=== PATIENT | female | born 1970 | race Caucasian/White ===

== ENCOUNTER 2016-05-27 10:22 | Emergency (ER) | payer OTHER ==
[~2016-05-27] VITALS: Ht 157.5 cm; Wt 50.0 kg
[~2016-05-27 10:22] MED LIST: ALBU8.5H2 INHALATION; BACL10TA PO; BECL8.7A6 INHALATION; ERGO500050 PO; FENT1PAT7 TOP; FLUT15.88 NS; HYDR2TAB27 PO; MENT71OI TOPICAL; MUPI22OI2 TOPICAL; OMEP20CA11 PO; ONDA4TAB12 PO; OXYB10TA PO; OXYC-466 PO; PREG150C PO; QUET50TA PO; VENL75TA3 PO; ZOLP5TAB6 PO
[2016-05-27 10:25] VITALS: BP 165/91; PULSE 78; RESP 24; O2SAT 100
[2016-05-27] MEDS ORDERED: 0.9% Sodium Chloride 1,000 ML IV ONE ×2 (10:48→12:55)
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
[2016-05-27] MEDS ORDERED: Ondansetron 2 mg/mL 2 mL Inj IVPUSH PRN (10:50)
[2016-05-27] MEDS: HYDROmorphone 1 mg/mL Inj IVPUSH PRN ×3 (11:09→14:50)
[2016-05-27 11:18] LABS: BASOPHILS % (AUTO) 0.4 % (0-3); EOSINOPHILS % (AUTO) 1.3 % (0-5); MONOCYTES % (AUTO) 5.2 % (4-12); Mean Corpuscular Hemoglobin 29.1 pg (27.0-35.0); Mean Corpuscular Volume 88.3 fL (81-100); NEUTROPHILS % (AUTO) 78.6 % (40-74); Platelet Count 384 bil/L (150-400)
[2016-05-27 11:40] LABS: Magnesium 1.9 mg/dL (1.6-2.6)
[2016-05-27] MEDS ORDERED: HYDROmorphone 1 mg/mL Inj IVPUSH ONE (12:55)
[2016-05-27 14:37] LABS: APPEARANCE,URINE HAZY (CLEAR,HAZY); COLOR,URINE YELLOW (YELLOW); OCCULT BLOOD,URINE NEGATIVE (NEGATIVE); UROBILINOGEN,URINE NORMAL (NORMAL)
[2016-05-27] MEDS ORDERED: Haloperidol 5 mg/mL Inj IVPUSH ONE (14:50)
[2016-05-27 14:51] VITALS: BP 144/81; PULSE 74; RESP 20; O2SAT 98
[2016-05-27] MEDS ORDERED: ONDA4TAB9 PO (15:43)
[2016-05-27 16:09] VITALS: BP 140/72; PULSE 88; O2SAT 97
[2016-05-27 16:13] VITALS: BP 140/72; PULSE 88; O2SAT 97
== END 2016-05-27 16:19 | disposition home or self-care (01) ==
LOC: SED 10:22
DX: G43.A0 Cyclical vomiting, in migraine, not intractable (principal); K31.84 Gastroparesis; R50.9 Fever, unspecified; I10 Essential (primary) hypertension; J45.909 Unspecified asthma, uncomplicated; E78.5 Hyperlipidemia, unspecified; Z87.891 Personal history of nicotine dependence; Z88.1 Allergy status to other antibiotic agents; Z88.5 Allergy status to narcotic agent; Z88.8 Allergy status to other drugs, medicaments and biological substances
CPT/HCPCS: 36415; 80053; 81000; 83690; 83735; 85025; 96361; 96374; 96375; 96376; 99285; J1170; J1200; J1630; J2405; J7030

== ENCOUNTER 2016-05-28 13:40 | Inpatient (IN) | payer OTHER, MEDICAID ==
[~2016-05-28] VITALS: Ht 157.5 cm; Wt 52.3 kg
[~2016-05-28 13:40] MED LIST changes: +ONDA4TAB9 PO
[2016-05-28 13:47] VITALS: BP 159/100; PULSE 86; RESP 16; O2SAT 100
[2016-05-28] MEDS ORDERED: 0.9% Sodium Chloride 1,000 ML IV ONE ×2 (14:40→15:33)
[2016-05-28] MEDS ORDERED: Ondansetron 2 mg/mL 2 mL Inj IVPUSH ONE (14:40)
[2016-05-28] MEDS ORDERED: HYDROmorphone 1 mg/mL Inj IVPUSH ONE (14:40)
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
[2016-05-28] MEDS ORDERED: MetoCLOpramide 5 mg/mL 2 mL Inj IVPUSH ONE (15:35)
--- NOTE | 2016-05-28 16:01 | DRSVH ---
PROCEDURE: X-RAY ACUTE ABDOMINAL SERIES ([id number]) INDICATIONS: r/o obstruction, vomiting TECHNIQUE: One view chest and two views of the abdomen were acquired. COMPARISON: [facility], , ABD ACUTE SERIES, 04/21/2012, 4:13. FINDINGS: Surgical changes and devices: L5-S1 interbody spacers noted. Status post L5 laminectomy . Cholecystec melony clips. Chest: Lungs are clear. Heart size is normal. No pleural effusions. No pneumoperitoneum. Abdomen: Bowel gas pattern is nonspecific. Gaseous distention of a loop of bowel is noted in the rig ht quadrant. Air fluid level with a differential height noted in the right quadrant. No suspicious ca lcifications. Visualized solid organ contours appear normal. Bones: No suspicious bony lesions. IMPRESSION: Nonspecific bowel gas pattern. Recommend repeat plain film radiographs or CT scan of the abdomen and pelvis with contrast if patient's symptoms persist or worsen. Dictated by: Leeanne Vazquez MD, PhD on 05/28/2016 at 16:00 Approved by: Leeanne Vazquez MD, PhD on 05/28/2016 at 16:00
[2016-05-28 17:22] VITALS: BP 155/89; PULSE 94; RESP 12; O2SAT 99
[2016-05-28] MEDS ORDERED: Promethazine Inj 25 MG in Dextrose 5%-Pha MIX 50 ML IV ONE (18:05)
--- NOTE | 2016-05-28 19:19 | DRSVH ---
PROCEDURE: CT ABDOMEN AND PELVIS WITH CONTRAST ([id number]) INDICATIONS: vomiting, possible obstruction per kub TECHNIQUE: After the administration of intravenous contrast, 5 mm thick sections acquired from the diaphragm to the symphysis. 5 mm coronal and sagittal reformats were acquired. For radiation dose reduction, the following was used: automated exposure control, adjustment of mA and/or kV according to patient siz e. COMPARISON: [facility], CT, CT ABD PELVIS W CON, 01/18/2016, 0:05. [facility], CR, XR ABD ACUTE SERIES 3VW, 05/28/2016, 16:10. FINDINGS: Image quality: Excellent. ABDOMEN: Lung bases: There is minimal dependent atelectasis. Heart size is normal. There is a moderate-sized hiatal hernia. Solid organs: Liver and spleen are normal in size and enhancement. Gallbladder is surgically absent . Biliary system is non dilated. Pancreas enhances normally. No adrenal nodules. Kidneys demonstr ate normal size and enhancement, without hydronephrosis. Peritoneum and bowel: There is mild segmental wall thickening involving a few loops of small bowel p rimarily in the left upper quadrant as well as the colon extending from the hepatic flexure to the si gmoid colon. There is slight fluid distention of distal small bowel loops without abnormal dilatatio n or transition point to suggest junction. No free fluid or air. Nodes and vessels: No retroperitoneal or mesenteric adenopathy by size criteria. Aorta and inferior vena cava are normal in size. Miscellaneous: No ventral hernias. PELVIS: Genitourinary: Bladder wall thickness is normal. The uterus is surgically absent. Miscellaneous: No inguinal hernias or adenopathy. Bones: No suspicious bony lesions. No vertebral body compression fractures. There are postsurgical changes status post fusion at L5-S1. IMPRESSION: 1. Multiple segments of bowel wall thickening involving the small and large bowel as described consi stent with a nonspecific enterocolitis, likely infectious or inflammatory. Mild associated fluid dis tention of a few loops of small bowel is compatible with an ileus without definite evidence of obstru ction. 2. Moderate size hiatal hernia. Dictated by: Ricci Andrade M.D. on 05/28/2016 at 19:18 Approved by: Ricci Andrade M.D. on 05/28/2016 at 19:18
[2016-05-28] MEDS ORDERED: Polyethylene Glycol (PEG) 17 Gm Powder PO PRN (19:50)
[2016-05-28] MEDS ORDERED: Alum-Mag Hydrox-Simeth 30 mL Suspension PO PRN ×2 (19:50)
[2016-05-28] MEDS ORDERED: Ondansetron 2 mg/mL 2 mL Inj IVPUSH PRN ×2 (19:50)
[2016-05-28 20:12] VITALS: BP 166/96; PULSE 92; RESP 18; O2SAT 100
[2016-05-28 21:02] VITALS: BP 171/95; PULSE 87; RESP 24; O2SAT 100
[2016-05-28] MEDS: 0.9% Sodium Chloride 1,000 ML IV SCH (21:22)
--- NOTE | 2016-05-28 22:06 | DRSVH ---
PROCEDURE: X-RAY CHEST ONE VIEW, PORTABLE ([id number]) INDICATIONS: Left upper Arm PICC line placement verification TECHNIQUE: One view of the chest was acquired. COMPARISON: [facility], MR, MR BRAIN W&WO CON, 05/06/2016, 12:37. [facility], CT, CT BRAIN WO CON, 01/12/2015, 13:00. [facility], CR, XR ABD ACUTE SERIES 3VW, 2016, 16:10. FINDINGS: Surgical changes and devices: There is a left upper extremity PICC line with the tip approximately 1 cm distal to the cavoatrial junction. Lungs and pleura: No pleural effusions or pneumothorax. Lungs are clear. Mediastinum: Mediastinal contours appear normal. Heart size is normal. Bones and chest wall: No suspicious bony lesions. Overlying soft tissues appear unremarkable. IMPRESSION: 1. PICC line tip approximately 1 cm distal to the cavoatrial junction. 2. No acute cardiopulmonary disease. Dictated by: Ricci Andrade M.D. on 05/28/2016 at 22:04 Approved by: Ricci Andrade M.D. on 05/28/2016 at 22:04
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
--- NOTE | 2016-05-28 23:00 | NUR ---
Admit note/med red Pt is admitted to room 3017 from ED around 20:40 for Ileus, dehydration, N/V. Pt is A&Ox3. c/o 02/19 abdominal pain; has nausea and retching. Morphine given with good relief. Nausea is not well controlled by Zofran; Reglan given-pt sleeping at this time. Bowel tones are very hypoactive. Pt reported small, formed BM this AM. Pt is oriented to room and plan of care; she verbalized understanding. CXR done to verify Left upper arm 1 lumen picc line. Pt didn't bring her medications or list of medications. Nafcillin added to her med rec (her home IV infusion shows 12Gm/600mL to run for 24hrs). will complete pt's med rec in AM. Addendum: 05/29/16 at 0639 by BRENDA SCHNEIDER RN correction: Pt had small "slimy, duck poop" at home. Addendum: 05/29/16 at 0642 by BRENDA SCHNEIDER RN N/pain/BM Zofran given for nausea, but pt reported it made her nausea and abdominal pain worst. Pt requested not to have any more zofran this admit. Reglan given with good relief. Morphine effective on relieving pt's 9-02/19 abdominal pain. Pt continuous to have small, slimy brown BM. hasn't passed gas. hypoactive bowel tone on RLQ, very hypoactive bowel tones on the rest.
[2016-05-28] MEDS: MetoCLOpramide 5 mg/mL 2 mL Inj IVPUSH PRN (23:06)
[2016-05-29] MEDS ORDERED: NAFC2VIA IV (00:37)
[2016-05-29] MEDS ORDERED: NAFC2FRO IV (00:45)
[2016-05-29 05:07] VITALS: BP 156/92; PULSE 67; RESP 22; O2SAT 100
[2016-05-29] MEDS: MetoCLOpramide 5 mg/mL 2 mL Inj IVPUSH PRN ×3 (05:07→18:07)
[2016-05-29 05:45] LABS: BASOPHILS % (AUTO) 0.2 % (0-3); EOSINOPHILS % (AUTO) 0.2 % (0-5); MONOCYTES % (AUTO) 14.1 % (4-12); Mean Corpuscular Hemoglobin 29.3 pg (27.0-35.0); Mean Corpuscular Volume 86.3 fL (81-100); NEUTROPHILS % (AUTO) 60.7 % (40-74); Platelet Count 349 bil/L (150-400)
[2016-05-29] MEDS: 0.9% Sodium Chloride 1,000 ML IV SCH ×3 (07:00→22:35)
[2016-05-29] MEDS ORDERED: KCl 40 mEq/D5W 500 mL 40 MEQ in IV Premix 1 EACH IV ONE (07:50)
--- NOTE | 2016-05-29 09:26 | NUR ---
Spoke with Erum Shaw and she is VALERIE BOLIVAR, she is aware patient is here and would like to have H&P faxed to her.
[2016-05-29 12:55] VITALS: BP 161/84; PULSE 67; RESP 23; O2SAT 98
[2016-05-29] MEDS ORDERED: [UNRECOGNIZED DRUG - OTHER] IV SCH (12:55)
[2016-05-29] MEDS ORDERED: NAFCILLIN IN DEXTROSE ISO OSM IV SCH (12:55)
[2016-05-29] MEDS ORDERED: Mupirocin 2% 22 Gm Ointment TOPICAL PRN (12:55)
--- NOTE | 2016-05-29 13:38 | NUR ---
Social Work-initial assessment: Data:See initial assessment. Pt is a 45 y/o female who was admitted on 05/28/16 for dehydration per H&P. Pt's insurance is [employer] and PCP is residency clinic. EMR Reviewed. BRYANT met with pt at bedside to discuss discharge planning, SW role explained. Pt is alert and oriented x3. Pt resides at home with her where she remains independent with ADLS. Pt either uses a fww or w.c at baseline and does not drive. Pt is currently open with [facility] and [facility] for IV abx. BRYANT spoke with Agapito from [facility] and Svitlana From [facility], both will need resume orders at discharge. Pt has VALERIE caregivers and her CM is Erum Shaw, clinicals faxed. BRYANT discussed DPOA/ advanced directive, pt states she has completed this, SW encouraged pt to bring a copy into the hospital. Pt has no detention care or VA benefits. Pt states her will provide transport home at discharge. BRYANT provided phone number and plan on white board in room. BRYANT will continue to follow. Assessment:pt who would benefit resume HH and resume IV abx. Plan:Pt to discharge home when medically stable via POV. Pt will need resume HH through [facility] and IV abx through [facility]. BRYANT will continue to follow. BONNIE Perez Addendum: 05/29/16 at 1342 by SWATHI DIXON SS Amended: Links added.
--- NOTE | 2016-05-29 13:54 | PCM.PNMED ---
Subjective Date of Service May 29, 2016 Subjective Patient states her chronic abdominal pain continues to be worse from her usual level of 5/10 to 8,9/10. Patient seen ambulating in [address] with assist. Denies fevers, chills or vomiting. Exam Vital Signs Vital Sign - Last Date Time Temp Pulse Resp B/P Pulse Ox O2 Delivery O2 Flow Rate FiO2 05/29/16 12:55 37.0 67 23 161/84 98 Room Air Intake and Output 05/28/16 05/28/16 05/29/16 Cumulative From/Thru 15:00 23:00 07:00 05/28/16 13:47 - 05/28/16 20:56 Intake Total 1000 ml 1000 ml 2000 ml Balance 1000 ml 1000 ml 2000 ml IV Total 1000 ml 1000 ml 2000 ml Lab and Diagnostics Result Diagram: 05/29/16 0505 05/29/16 0505 X-Rays, CTs and MRIs CT ABDOMEN AND PELVIS WITH CONTRAST 05/28/16 IMPRESSION: 1. Multiple segments of bowel wall thickening involving the small and large bowel as described consistent with a nonspecific enterocolitis, likely infectious or inflammatory. Mild associated fluid distention of a few loops of small bowel is compatible with an ileus without definite evidence of obstruction. 2. Moderate size hiatal hernia. Dictated by: Ricci Andrade M.D. on 05/28/2016 at 19:18 Approved by: Ricci Andrade M.D. on 05/28/2016 at 19:18 X-RAY ACUTE ABDOMINAL SERIES 05/28/16 IMPRESSION: Nonspecific bowel gas pattern. Recommend repeat plain film radiographs or CT scan of the abdomen and pelvis with contrast if patient's symptoms persist or worsen. Dictated by: Leeanne Vazquez MD, PhD on 05/28/2016 at 16:00 Approved by: Leeanne Vazquez MD, PhD on 05/28/2016 at 16:00 Assessment & Plan 45 year old female with a history of Multiple Sclerosis, Gastropareses, Chronic narcotic dependence and previous feeding tube placement presents to [facility] Emergency department with Abdominal pain and vomiting. Day #1. 1. Acute Abdominal pain. Present on admission. Ongoing symptoms Etiology is likely due to Gastroparesis but also imaging suggests nonspecific enterocolitis. Patient does not seem to have infectious clinical course and will hold off starting any antibiotics at this point. It is reasonable she may have a viral gastroenteritis. Some concern raised about narcotic seeking behaviors in previous medical records reviewed - CT findings as follows: Multiple segments of bowel wall thickening involving the small and large bowel as described consistent with a nonspecific enterocolitis, likely infectious or inflammatory. Mild associated fluid distention of a few loops of small bowel is compatible with an ileus without definite evidence of obstruction. - nothing by mouth - continue IV fluids - antiemetics with Reglan IV which will be beneficial for gastroparesis 2. Gastroparesis, chronic Etiology unclear with no history of common risk factors such as diabetes. Could be related to her Multiple sclerosis - history of Botox injection lower esophageal sphincter - recommend evaluation at [facility] concerning benefit of a gastric pacemaker placement 3. Recent hx of staph aureus bacteremia, poa. Stable. - continue daily Nafcillin IV to complete a course of 6 weeks (till early Jun) - patient followed by Dr. Benjamin outpatient 4. Chronic narcotic dependence pain: - Continue hoe dose fentanyl patch, Percocet. - Morphine IV to only be used for breakthrough pain 5. Multiple Sclerosis, Chronic - presumed stable. - outpatient follow up with Neurology 6. Depression/anxiety/PTSD: -Continue venlafaxine, Seroquel - Acetaminophen as needed for mild pain/fever/headache - Bowel regimen as needed - Antiemetic as needed Dispo: Anticipate discharge once patient is tolerating oral intake, most likely in 1-2 days. VTE Mechanical Devices: Intermittant Pneumatic CD, Venous Foot Pump Resuscitation Status: CPR: Attempt Resuscitation Time spent 25 minutes Attending Statement I have seen and evaluated patient at bedside in addition to directly supervising care provided by resident physician. I agree with above documentation. Daphnie Wise DO May 29, 2016 13:47 Alcon Thomas DO May 30, 2016 07:29
--- NOTE | 2016-05-29 14:05 | NUR ---
Case Management: Clarification of patient status: Inpatient per MD order on 05/29/16. Vanna Levy RN
[2016-05-29] MEDS ORDERED: Nafcillin Inj 2,000 MG in Dextrose 5% Minibag Plus 100 ML IV ONE (15:20)
--- NOTE | 2016-05-29 15:43 | NUR ---
Meds/Contact Pt medicated for pain Q4 hrs. Fentanyl patch added and PO pain med, in addiction to IV. Pt being f/u by Dr Benjamin, placed on enteric precautions till stool PCR comes back. Pt able to make needs known, bed in low position, call light in reach. Will continue with frequent monitoring. Addendum: 05/29/16 at 1647 by ISHAAN SAN RN Noon meds and IV Nefcillin given late d/t meds not provided by Rx Meds just administered
--- NOTE | 2016-05-29 16:18 | CONS ---
[address] [address] CONSULTATION REPORT PATIENT: SWATHI BLAIR : 1970 MR#: [id number] ADMIT: 05/28/2016 JOB ID: [id number] DATE OF SERVICE: 05/29/2016 INFECTIOUS DISEASE CONSULTATION: REASON FOR CONSULTATION: Fever, nausea and vomiting in a patient who is undergoing treatment for MSSA bacteremia. I thank Dr. Wise for this timely consult. HISTORY OF PRESENT ILLNESS: The patient is an unfortunate 45-year-old woman well known to me from an admission in April. At that time, the patient had been admitted with high-grade methicillin-sensitive Staphylococcus aureus bacteremia arising from an infected port catheter which had been placed to facilitate intravenous infusions occasionally needed for her esophageal disease. The patient's port was removed during that April admission by Dr. Gallardo and we embarked upon a six week course of nafcillin for the high-grade MSSA bacteremia. We were unable to do a transesophageal echo because of her esophageal issues and, therefore, decided six weeks would be the appropriate length of therapy in this somewhat fragile multiple sclerosis patient. The patient was discharged on or about May 10 and the plan was to continue her IV nafcillin by continuous infusion through a PICC that we installed during that admission, through June 20. The patient was doing relatively well though she did fail to see me last week in her appointment. We called her and she said she was feeling okay but she was unable to get transportation and was feeling quite tired. The patient was subsequently readmitted to this facility last night with abdominal pain, nausea, vomiting, and fever. She also notes that her stools have been watery. It is notable to me that last night in the emergency department she denied fevers or chills, but this afternoon, she tells me explicitly that there were fevers and chills present at the time of discharge. She states that she really had nothing in the way of respiratory symptoms other than her chronic shortness of breath but no cough or increased sputum production or pleuritic chest pain. The patient had actually been seen in the ED May 27, the day before yesterday, with vomiting, and at that point, the decision was to give her IV fluids and antiemetics and she did okay and went home. The patient tells me she has had no problems with her left upper extremity PICC line or any troubles with the infusions. She denies any recent rash or drop-off in urine output. PAST MEDICAL HISTORY: 1. Multiple sclerosis beginning age 25. 2. Gastroparesis. 3. Migraine headaches. 4. Depression and anxiety. 5. Hypertension. 6. Asthma. 7. Cluster B psychiatric disorder. 8. Multiple surgeries including hysterectomy and extensive back surgery with hardware placement. 9. Status post cholecystectomy. 10. MSSA bacteremia documented late April 2016. SOCIAL HISTORY: The patient is a significant marijuana user as it helps with her multiple sclerosis. She is also an ex tobacco smoker. She does not drink alcohol and takes considerable pain meds for chronic musculoskeletal pain. FAMILY HISTORY: Negative for TB. REVIEW OF SYSTEMS: The patient notes that her headaches have essentially resolved. When she was in the hospital in April, she had a great deal of trouble with upward gaze which was painful. That upward gaze problem has completely resolved and now she has no pain with any motion of her eyes. She denies no drop-off in her vision. She has no sore throat. No significant cough. She is chronically short of breath and it seems a little worse lately. No chest pain. She has had protracted nausea and vomiting which started about three days ago. This has not been a recurrent problem she states. She has no urgency, frequency or dysuria. She does note she has had more or less liquid stools in the past few days. She has no notable skin rash or swelling of the extremities or any joints. PHYSICAL EXAMINATION: Reveals an afebrile woman. Temperature 37 degrees, pulse 67, respiratory rate 23, blood pressure 161/84, saturating well on room air. The patient is awake and alert. Conversational. Appears about the same as when she was in the hospital three weeks ago. Head without change, without trauma or any abnormalities. Eyes with full extraocular movements including vertical gaze. No conjunctivitis or scleral icterus. Nose normal. Oral cavity negative. Lungs clear to auscultation. Cardiac tones regular rate and rhythm with soft systolic murmur as before. Abdomen: Diffusely tender which is new. Bowel tones perhaps a bit hypoactive but present. The tenderness in the abdomen seems in all four quadrants, however. No organomegaly or mass can be palpated but it is a difficult examination. No suprapubic fullness. No evidence of synovitis or inflammation of the joints. No skin rashes noted. LABORATORIES: Include white count 9300, hematocrit 29, platelet count 349,000. Creatinine is 0.63. LFTs are normal. Urinalysis negative. Blood cultures are negative. We have no blood cultures from this admission. A chest x-ray done last night shows no infiltrate. PICC lines in good position on that x-ray. An abdominal CT was done last night and this is interesting in that it shows multiple segments of bowel wall thickening involving both small and large bowel consistent with a nonspecific enterocolitis likely infectious or inflammatory. IMPRESSION: 1. This patient is readmitted with nausea, vomiting, loose stools and perhaps a fever. Since admission though she has been afebrile. I do not think that what is going on here is a manifestation of her underlying MSSA bacteremia or the treatment with nafcillin. Nafcillin could, of course, cause interstitial nephritis as well as skin rashes and other issues, but I see little evidence for any classic nafcillin toxicity in this patient. Likewise it seems unlikely that she has a recrudescent MSSA bacteremia. It seems most obvious that the patient has developed an enterocolitis and the question is what this might represent. It is possible that this could be C. difficile colitis and I think we must take this possibility seriously and check a stool for C difficile. Likewise it is important that we repeat two sets of blood cultures, which can be drawn both through the PICC line as the patient is a very difficult stick. These blood cultures are needed to rule out the possibility of recrudescent MSSA bacteremia. For our last study, I think a stool multiplex PCR would be indicated to see if we have some viral gastroenteritis going on here. 2. The nafcillin should be resumed as soon as possible as it has been interrupted now almost 24 hours with a plan to continue through June 20.
[2016-05-29] MEDS ORDERED: Sodium Chloride LOK Flush 10 mL Syringe IVFLUSH PRN ×2 (17:25)
[2016-05-29] MEDS: Nafcillin Inj 12,000 MG in Dextrose 5% 1,000 ML IV SCH (17:56)
[2016-05-29] MEDS: Fluticasone 100 mCg Inhaler INHALATION SCH (19:43)
[2016-05-29 20:45] VITALS: BP 167/99; PULSE 77; RESP 20; O2SAT 97
[2016-05-30] MEDS: MetoCLOpramide 5 mg/mL 2 mL Inj IVPUSH PRN ×3 (01:41→15:22)
[2016-05-30 05:39] VITALS: BP 134/71; PULSE 64; RESP 20; O2SAT 97
[2016-05-30 06:44] LABS: BASOPHILS % (AUTO) 1.4 % (0-3); EOSINOPHILS % (AUTO) 6.5 % (0-5); MONOCYTES % (AUTO) 13.5 % (4-12); Mean Corpuscular Hemoglobin 29.3 pg (27.0-35.0); Mean Corpuscular Volume 85.9 fL (81-100); NEUTROPHILS % (AUTO) 55.9 % (40-74); Platelet Count 268 bil/L (150-400)
[2016-05-30] MEDS ORDERED: KCl 40 mEq/D5W 500 mL 40 MEQ in IV Premix 1 EACH IV ONE (07:45)
[2016-05-30] MEDS: Fluticasone 0.05% 15 Spray/2 Gm 16 Gm Nasal Spray NASAL SCH (08:33)
[2016-05-30] MEDS: Fluticasone 100 mCg Inhaler INHALATION SCH ×2 (08:34→20:47)
--- NOTE | 2016-05-30 10:26 | PROG NOTE ---
[address] [address] PROGRESS NOTE PATIENT: SWATHI BLAIR : 1970 MR#: [id number] ADMIT: 05/28/2016 JOB ID: [id number] DATE: 05/30/2016 INFECTIOUS DISEASE FOLLOWUP NOTE: REASON FOR FOLLOWUP: Ongoing treatment for MSSA bacteremia with possible endocarditis, now complicated by gastroenteritis. INTERVAL HISTORY: Overnight, the patient has continued to have frequent loose stools. She reports she has, in fact, been incontinent of stool at times during the night. This has not been associated with any fevers, chills, shortness of breath, or chest pain. She has no real abdominal pain either. OBJECTIVE: The patient has been afebrile since admission with a T-max 37.7, right now 36.6. Pulse 64, respiratory rate 20, blood pressure 134/71. She is saturating well on room air. Oral cavity without thrush or hairy leukoplakia. Mental status: Sharp. Lungs: Clear. Cardiac tones are regular rate and rhythm. No new murmur noted. Abdomen with normal bowel tones and relatively nontender. Labs include a white count of 5100. Creatinine 0.55. LFT are normal. Micro studies include the stool multiplex PCR, which is negative, including being negative for C. diff. No other viruses or organisms were detected in stool. Blood cultures are negative. A chest x-ray, on admission, of course, showed no infiltrates, and the abdominal CT was quite abnormal in that it showed multiple segments of bowel wall thickening involving both the large and small bowel. IMPRESSION: Our concerns yesterday about the possibility of Clostridium difficile have been allayed, as her PCR studies are all negative. Diarrhea in and of itself without Clostridium difficile would be quite an unusual manifestation of nafcillin toxicity, and it is worth noting this diarrhea only started about three days ago which was a long time after she had started the nafcillin, making this connection very unlikely. More likely, I think this represents some viral gastroenteritis, which we have been unable to detect with our multiplex PCR. The patient tells me her has a similar gastrointestinal type illness, and I think this is the more likely explanation for what is going on than some complication of our therapy or manifestation of inadequately treated endocarditis. RECOMMENDATIONS: 1. Will continue with the IV nafcillin through June 20. 2. Will continue to closely observe the patient but as her diarrhea resolves and she gets back on a more regular diet, I think she could be discharged in the near future with the resolution of her previous orders and continuing the nafcillin through June 20 as mentioned above.
[2016-05-30] MEDS ORDERED: Magnesium Sulf 2 Gm/50mL Water 2 GM in IV Premix 1 EACH IV ONE (11:25)
[2016-05-30] MEDS: 0.9% Sodium Chloride 1,000 ML IV SCH (13:14)
--- NOTE | 2016-05-30 13:49 | PCM.PNMED ---
Subjective Date of Service May 30, 2016 Subjective BP mildly elevated overnight. Today, patient reports she is doing much better. Continues to have her chronic epigastric pain with nause, which has been tolerable with the pain meds. Continues to have loose stools, but not overly watery. Denies fevers or chills. Exam Vital Signs Vital Sign - Last Date Time Temp Pulse Resp B/P Pulse Ox O2 Delivery O2 Flow Rate FiO2 05/30/16 05:39 36.6 64 20 134/71 97 Room Air Intake and Output 05/29/16 05/29/16 05/30/16 Cumulative From/Thru 15:00 23:00 07:00 05/28/16 13:47 - 05/29/16 18:08 Intake Total 0 ml 1440 ml 3440 ml Output Total 980 ml 625 ml 1605 ml Balance -980 ml 815 ml 1835 ml Intake Oral 0 ml 200 ml 200 ml IV Total 1240 ml 3240 ml Output Urine Total 830 ml 200 ml 1030 ml Urine/Stool Mix 150 ml 425 ml 575 ml # Voids 1 1 # Bowel Movements 1 7 8 Exam GEN: AAO X3, Cooperative, NAD, tolerating clear liquids Eyes: PERRLA, EOMI, Scleral Anicteric Mouth: Moist mucous membranes Neck: Supple, no Thyromegaly, trachea central. Chest & Lungs: CTAB CV: RRR, No Murmurs/Rubs/Gallops, Abdomen: Tenderness to palpation at epigastric. Soft, Non-distended. Hypoactive bowel tones Extremities: No edema, no cyanosis, no clubbing. Skin: Warm and dry and intact Neurological: Normal Speech Lab and Diagnostics Result Diagram: 05/30/16 0635 05/30/16 0635 X-Rays, CTs and MRIs CT ABDOMEN AND PELVIS WITH CONTRAST 05/28/16 IMPRESSION: 1. Multiple segments of bowel wall thickening involving the small and large bowel as described consistent with a nonspecific enterocolitis, likely infectious or inflammatory. Mild associated fluid distention of a few loops of small bowel is compatible with an ileus without definite evidence of obstruction. 2. Moderate size hiatal hernia. Dictated by: Ricci Andrade M.D. on 05/28/2016 at 19:18 Approved by: Ricci Andrade M.D. on 05/28/2016 at 19:18 X-RAY ACUTE ABDOMINAL SERIES 05/28/16 IMPRESSION: Nonspecific bowel gas pattern. Recommend repeat plain film radiographs or CT scan of the abdomen and pelvis with contrast if patient's symptoms persist or worsen. Dictated by: Leeanne Vazquez MD, PhD on 05/28/2016 at 16:00 Approved by: Leeanne Vazquez MD, PhD on 05/28/2016 at 16:00 Assessment & Plan 45 year old female with a history of Multiple Sclerosis, Gastropareses, Chronic narcotic dependence and previous feeding tube placement presents to [facility] Emergency department with Abdominal pain and vomiting. Day #2. 1. Acute Abdominal pain. Present on admission. Improving. Etiology is likely due to Gastroparesis but also imaging suggests nonspecific enterocolitis. Patient does not seem to have infectious clinical course and will hold off starting any antibiotics at this point. It is reasonable she may have a viral gastroenteritis. Some concern raised about narcotic seeking behaviors in previous medical records reviewed - CT findings as follows: Multiple segments of bowel wall thickening involving the small and large bowel as described consistent with a nonspecific enterocolitis, likely infectious or inflammatory. Mild associated fluid distention of a few loops of small bowel is compatible with an ileus without definite evidence of obstruction. - continue IV fluids - antiemetics with Reglan IV which will be beneficial for gastroparesis - advance diet as tolerated 2. Gastroparesis, chronic Etiology unclear with no history of common risk factors such as diabetes. Could be related to her Multiple sclerosis - history of Botox injection lower esophageal sphincter - recommend evaluation at [facility] concerning benefit of a gastric pacemaker placement 3. Recent hx of staph aureus bacteremia of port, poa. Stable. - continue daily Nafcillin IV to complete a course of 6 weeks (till 06/20) - patient followed by Dr. Benjamin outpatient - Appreciate ID consult with time and expertise 4. Chronic narcotic dependence pain: - Continue hoe dose fentanyl patch, Percocet. - Morphine IV to only be used for breakthrough pain 5. Multiple Sclerosis, Chronic - presumed stable. - outpatient follow up with Neurology 6. Depression/anxiety/PTSD: -Continue venlafaxine, Seroquel - Acetaminophen as needed for mild pain/fever/headache - Bowel regimen as needed - Antiemetic as needed - DVT prophy: SCD Dispo: Anticipate discharge tomorrow. VTE Mechanical Devices: Intermittant Pneumatic CD, Venous Foot Pump Resuscitation Status: CPR: Attempt Resuscitation Time spent 30 minutes Attending Statement I have seen and directly evaluated patient at bedside in addition to directly supervising care provided by resident physician. I agree with above documentation. Daphnie Wise DO May 30, 2016 10:47 Alcon Thomas DO May 30, 2016 16:26
[2016-05-30] MEDS: Nafcillin Inj 12,000 MG in Dextrose 5% 1,000 ML IV SCH (14:30)
[2016-05-30 15:36] VITALS: BP 162/88; PULSE 62; RESP 22; O2SAT 95
--- NOTE | 2016-05-30 15:57 | NUR ---
Shift report Pleasant pt, able to make needs known. Uses call light appropriately. Requires PRN pain meds q4hrs, along with reglan. Pt tolerating IV-PICC abx well. Will continue with frequent rounding.
[2016-05-30 20:52] VITALS: BP 166/101; PULSE 69; RESP 22; O2SAT 96
--- NOTE | 2016-05-31 02:53 | NUR ---
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 Pt has been independent to BSC.
[2016-05-31] MEDS: MetoCLOpramide 5 mg/mL 2 mL Inj IVPUSH PRN ×3 (04:14→17:28)
[2016-05-31 04:43] VITALS: BP 158/102; PULSE 77; RESP 20; O2SAT 96
[2016-05-31 04:50] LABS: BASOPHILS % (AUTO) 0.9 % (0-3); MONOCYTES % (AUTO) 12.8 % (4-12); Mean Corpuscular Hemoglobin 29.4 pg (27.0-35.0); Mean Corpuscular Volume 84.5 fL (81-100); NEUTROPHILS % (AUTO) 57.2 % (40-74); Platelet Count 312 bil/L (150-400)
[2016-05-31 05:20] LABS: Magnesium 1.8 mg/dL (1.6-2.6)
[2016-05-31] MEDS ORDERED: KCl 40 mEq/D5W 500 mL 40 MEQ in IV Premix 1 EACH IV ONE (07:00)
[2016-05-31] MEDS: Fluticasone 100 mCg Inhaler INHALATION SCH ×2 (07:45→20:36)
[2016-05-31] MEDS: Fluticasone 0.05% 15 Spray/2 Gm 16 Gm Nasal Spray NASAL SCH (07:45)
[2016-05-31] MEDS: 0.9% Sodium Chloride 1,000 ML IV SCH ×2 (07:51→08:00)
[2016-05-31 08:00] VITALS: BP 154/92; PULSE 79; RESP 21; O2SAT 94
--- NOTE | 2016-05-31 09:00 | NUR ---
Pt left the floor to U/s via wheelchair with staff. Addendum: 05/31/16 at 0930 by LISSETTE DIAZ Pt returned to floor with Iv. Helped in to bed with staff. Pain decreased since last medication administration. Pt states she is comfortable in bed.
--- NOTE | 2016-05-31 09:38 | DRSVH ---
PROCEDURE: US VEINOUS LEG DUPLEX UNILATERAL, RIGHT INDICATIONS: painful right calf TECHNIQUE: Real-time imaging, as well as color and pulse Doppler interrogation, were performed of the lower extr emity deep veins from the inguinal ligament to the popliteal fossa. COMPARISON: None. FINDINGS: The deep veins are normally compressible, and free of intraluminal thrombus. Color and pu lse Doppler demonstrate normal phasic intraluminal flow. There is normal augmentation response to di stal compression maneuver. IMPRESSION: No DVT right leg. Dictated by: Ever Dubon M.D. on 05/31/2016 at 9:37 Approved by: Ever Dubon M.D. on 05/31/2016 at 9:37
--- NOTE | 2016-05-31 10:08 | PCM.PNMED ---
Subjective Date of Service May 31, 2016 Subjective No overnight events. Today patient happy that she was able to get some sleep, states she has not been nauseated. Continues to have some diarrhea her baseline epigastric pain. Now tolerating Ensure. Denies fevers or chills. Exam Vital Signs Vital Sign - Last Date Time Temp Pulse Resp B/P Pulse Ox O2 Delivery O2 Flow Rate FiO2 05/31/16 08:00 37.2 79 21 154/92 94 Room Air Intake and Output 05/30/16 05/30/16 05/31/16 Cumulative From/Thru 15:00 23:00 07:00 05/28/16 13:47 - 05/30/16 18:53 Intake Total 300 ml 4923 ml 8663 ml Output Total 250 ml 2200 ml 4055 ml Balance 50 ml 2723 ml 4608 ml Intake Oral 300 ml 1840 ml 2340 ml IV Total 3083 ml 6323 ml Output Urine Total 250 ml 2200 ml 3480 ml Urine/Stool Mix 575 ml # Voids 1 # Bowel Movements 1 3 12 Exam GEN: AAO X3, Cooperative and pleasant, NAD, tolerating nectar thick Eyes: PERRLA, EOMI, Scleral Anicteric Mouth: Moist mucous membranes Neck: Supple, no Thyromegaly, trachea midline Chest & Lungs: CTAB CV: RRR, No Murmurs/Rubs/Gallops, Abdomen: Tenderness to palpation at epigastric and LLQ. Soft, Non-distended. Normal bowel tones Extremities: No edema, no cyanosis, no clubbing. Tenderness to right calf squeeze, positive Jose sign. Skin: Warm and dry and intact Neurological: Normal Speech, normal mood and affect. IVs and Medications Medications Reviewed: Medications were reviewed in detail Lab and Diagnostics Result Diagram: 05/31/16 0440 05/31/16 0440 X-Rays, CTs and MRIs CT ABDOMEN AND PELVIS WITH CONTRAST 05/28/16 IMPRESSION: 1. Multiple segments of bowel wall thickening involving the small and large bowel as described consistent with a nonspecific enterocolitis, likely infectious or inflammatory. Mild associated fluid distention of a few loops of small bowel is compatible with an ileus without definite evidence of obstruction. 2. Moderate size hiatal hernia. Dictated by: Ricci Andrade M.D. on 05/28/2016 at 19:18 Approved by: Ricci Andrade M.D. on 05/28/2016 at 19:18 X-RAY ACUTE ABDOMINAL SERIES 05/28/16 IMPRESSION: Nonspecific bowel gas pattern. Recommend repeat plain film radiographs or CT scan of the abdomen and pelvis with contrast if patient's symptoms persist or worsen. Dictated by: Leeanne Vazquez MD, PhD on 05/28/2016 at 16:00 Approved by: Leeanne Vazquez MD, PhD on 05/28/2016 at 16:00 Assessment & Plan 45 year old female with a history of Multiple Sclerosis, Gastropareses, Chronic narcotic dependence and previous feeding tube placement presents to [facility] Emergency department with Abdominal pain and vomiting. Day #3. 1. Acute on Chronic Abdominal pain. Present on admission. Improving. Etiology is likely due to Gastroparesis but also imaging suggests nonspecific enterocolitis. Patient does not seem to have infectious clinical course and will hold off starting any antibiotics at this point. It is reasonable she may have a viral gastroenteritis. Some concern raised about narcotic seeking behaviors in previous medical records reviewed - CT findings as follows: Multiple segments of bowel wall thickening involving the small and large bowel as described consistent with a nonspecific enterocolitis, likely infectious or inflammatory. Mild associated fluid distention of a few loops of small bowel is compatible with an ileus without definite evidence of obstruction. - continue antiemetics with Reglan IV which will be beneficial for gastroparesis - advance diet as tolerated 2. Gastroparesis, chronic Etiology unclear with no history of common risk factors such as diabetes. Could be related to her Multiple sclerosis - history of Botox injection lower esophageal sphincter - recommend evaluation at [facility] concerning benefit of a gastric pacemaker placement 3. Recent hx of staph aureus bacteremia of port, poa. Stable. - continue daily Nafcillin IV to complete a course of 6 weeks (till 06/20) - patient followed by Dr. Benjamin outpatient - Appreciate ID consult with time and expertise 4. Chronic narcotic dependence pain: - Continue hoe dose fentanyl patch, Percocet. - Morphine IV to only be used for breakthrough pain 5. Multiple Sclerosis, Chronic - presumed stable. - outpatient follow up with Neurology 6. Depression/anxiety/PTSD: -Continue venlafaxine, Seroquel - Acetaminophen as needed for mild pain/fever/headache - Bowel regimen as needed - Antiemetic as needed - DVT prophy: SCD Dispo: Anticipate discharge tomorrow. VTE Mechanical Devices: Intermittant Pneumatic CD Resuscitation Status: CPR: Attempt Resuscitation Time spent 25 minutes Attending Statement I have seen and evaluated patient at bedside in addition to directly supervising care provided by resident physician. I agree with above documentation. Daphnie Wise DO May 31, 2016 09:35 Alcon Thomas DO Jun 01, 2016 08:16
[2016-05-31 11:54] VITALS: PULSE 95
--- NOTE | 2016-05-31 13:45 | NUR ---
Social Work: Readiness for d/c Data: PT is on day 3 of hospitalization. EMR reviewed, pt discussed in rounds. MD states pt likely to d/c tomorrow. SOCIAL WORKER CLINICAL spoke with [facility] who states they will require a new prescription for pt before d/c as pt's medications have . SOCIAL WORKER CLINICAL requested prescription from at rounds. SOCIAL WORKER CLINICAL will need to fax prescription to [facility] at [phone]. SOCIAL WORKER CLINICAL will continue to follow. Assessment: Pt who is independent at baseline. Plan: Pt will d/c home via POV with michael PAULA with [facility] for IVABX when medically stable, likely tomorrow. MD to provide SOCIAL WORKER CLINICAL with prescription for IVABX, SOCIAL WORKER CLINICAL to fax [facility] the prescription to [phone]. SOCIAL WORKER CLINICAL will continue to follow. BONNIE Bernal
[2016-05-31 13:50] VITALS: BP 170/96; PULSE 81; RESP 18; O2SAT 94
--- NOTE | 2016-05-31 14:15 | NUR ---
BP/Diet Pt noted with creasing BP, MD notified. Metoprolol order pending. Pt states to be feeling well otherwise. Appears comfortable in bed. Pt on advance as tolerated diet. Had ensure, apple sauce, juice for bfast & soup for lunch. Will change diet to general, confirmed with MD. Will continue to monitor.
--- NOTE | 2016-05-31 15:35 | PROG NOTE ---
[address] [address] PROGRESS NOTE PATIENT: SWATHI BLAIR : 1970 MR#: [id number] ADMIT: 05/28/2016 JOB ID: [id number] DATE: 05/31/2016 INFECTIOUS DISEASE FOLLOW UP NOTE: REASON FOR FOLLOWUP: MSSA bacteremia, readmitted with GI symptoms including nausea and vomiting. INTERVAL HISTORY: The patient says overnight she has felt gradually better. Her GI symptoms, nausea and vomiting have subsided steadily and she is now able to tolerate a full liquid diet with plans to try a general diet later tonight. If this is successful, she has been assured she will be discharged tomorrow. She has no fevers, chills or sweats. No abdominal pain. PHYSICAL EXAMINATION: Temperature 37.1, pulse 81, respiratory rate 18, blood pressure 170/96. She is saturating 94% on room air. Mental status is clear. Lungs clear as well. Cardiac tones without new murmur. Abdomen: Minimal epigastric tenderness but basically benign. No skin rashes noted. LABORATORIES: Include a white count of 6300, creatinine 0.58. Micro studies are basically negative including blood cultures and her PCR panel. Venous ultrasound is available. Shows no DVT in the right leg. Otherwise no new x-rays have been done. There is no evidence by PCR or other GI studies of any ongoing gastrointestinal infection. The imaging of her abdomen was ambiguous and would appear most likely this is a viral or self-limited gastroenteritis. Her had a similar illness and is already totally back to normal and I think this patient is well on her way. Meanwhile she still requires a completion of her six weeks of IV nafcillin which would go through June 20. RECOMMENDATIONS: 1. Would continue with IV nafcillin with the plan to go through June 20. 2. I think the patient should be tried on a regular diet and if that is successful discharge in the morning seems most appropriate.
[2016-05-31] MEDS: Nafcillin Inj 12,000 MG in Dextrose 5% 1,000 ML IV SCH (17:17)
[2016-05-31 18:07] VITALS: BP 167/99; PULSE 65; RESP 16; O2SAT 94
--- NOTE | 2016-05-31 18:15 | NUR ---
Pt was up to the chair before dinner as requested for a change in position. The pt. has advanced her diet to general with the absence of N/V. She has adapted well to patient teaching and requested anything she needs. SHe has requested her pain medication every 4hr along with the antiemetic q6hr. Pt is expected to DC tomorrow if she has no N/V over night. Addendum: 05/31/16 at 1940 by ISHAAN SAN RN I agree with above SRNs note.
[2016-05-31 20:39] VITALS: BP 170/91; PULSE 73; RESP 18; O2SAT 95
[2016-06-01 00:43] VITALS: BP 140/90; PULSE 72; RESP 16; O2SAT 97
[2016-06-01] MEDS: MetoCLOpramide 5 mg/mL 2 mL Inj IVPUSH PRN (04:09)
[2016-06-01 04:39] LABS: Mean Corpuscular Hemoglobin 29.6 pg (27.0-35.0); Mean Corpuscular Volume 84.9 fL (81-100)
[2016-06-01 05:03] LABS: Magnesium 1.8 mg/dL (1.6-2.6)
[2016-06-01 05:31] VITALS: PULSE 60
[2016-06-01 05:52] VITALS: BP 142/90; PULSE 79; RESP 16; O2SAT 95
[2016-06-01 08:00] VITALS: PULSE 83
[2016-06-01] MEDS ORDERED: Potassium Chloride 20 mEq SR Tablet PO SCH (08:00)
[2016-06-01] MEDS: Fluticasone 100 mCg Inhaler INHALATION SCH (08:04)
[2016-06-01] MEDS: Fluticasone 0.05% 15 Spray/2 Gm 16 Gm Nasal Spray NASAL SCH (08:04)
[2016-06-01] MEDS ORDERED: POTA10TA38 PO (09:00)
--- NOTE | 2016-06-01 09:07 | PCM.DIMED ---
Daphnie Wies DO 06/01/16 0904: Discharge Instructions Date of Service Jun 01, 2016 Dates of Hospitalization May 28, 2016 at 20:39 Discharge Diagnosis Discharge Diagnosis 1. Acute on Chronic Abdominal pain.Stable. 2. Gastroparesis, chronic 3. Recent hx of staph aureus bacteremia of port on daily antibiotics 4. Chronic narcotic dependence pain: 5. Multiple Sclerosis 6. Depression/anxiety/PTSD Medication Instructions Potassium chloride 10 meq to be taken daily by mouth. Diet Other (Continue to advance your diet as tolerated. Do not overdue.) Activity Limited until seen by PCP Call your provider Fever or Chills, Chest pain, Vomitting, Excessive diarrhea Patient Instructions Please have your potassium checked in one week and go to the [facility] for a nurses' visit to check your blood pressure. Please continue to take your potassium on a daily basis, and have your PCP recheck levels at your 2 week follow up visit. Go to ED if you have any sudden onset of severe abdominal pain with continuous vomiting and/or diarrhea. Follow-up Provider: Milan Bryant DO Follow-up with PCP in: 2 weeks Alcon Thomas DO 06/02/16 1141: Discharge Instructions Attending's Statement Read and agree Daphnie Wise DO Jun 01, 2016 09:04 Alcon Thomas DO Jun 02, 2016 11:41
--- NOTE | 2016-06-01 09:10 | PCM.DC.MED ---
Discharge Summary Date of Service Jun 01, 2016 Dates of Hospitalization Date of Hospital Admission May 28, 2016 at 20:39 Date of Discharge: Jun 01, 2016 Providers: Admitting Physician: Hakeem Moffett MD Primary Care Physician: Milan Bryant DO Attending Physician: Hakeem Moffett MD Diagnosis at Time of Discharge Diagnosis at Time of Discharge 1. Acute on Chronic Abdominal pain.Stable. 2. Gastroparesis, chronic 3. Recent hx of staph aureus bacteremia of port on daily antibiotics 4. Chronic narcotic dependence pain: 5. Multiple Sclerosis 6. Depression/anxiety/PTSD Consultations ID: Magno Benjamin MD Procedures XRay, CTs & MRIs CT ABDOMEN AND PELVIS WITH CONTRAST 05/28/16 IMPRESSION: 1. Multiple segments of bowel wall thickening involving the small and large bowel as described consistent with a nonspecific enterocolitis, likely infectious or inflammatory. Mild associated fluid distention of a few loops of small bowel is compatible with an ileus without definite evidence of obstruction. 2. Moderate size hiatal hernia. Dictated by: Ricci Andrade M.D. on 05/28/2016 at 19:18 Approved by: Ricci Andrade M.D. on 05/28/2016 at 19:18 X-RAY ACUTE ABDOMINAL SERIES 05/28/16 IMPRESSION: Nonspecific bowel gas pattern. Recommend repeat plain film radiographs or CT scan of the abdomen and pelvis with contrast if patient's symptoms persist or worsen. Dictated by: Leeanne Vazquez MD, PhD on 05/28/2016 at 16:00 Approved by: Leeanne Vazquez MD, PhD on 05/28/2016 at 16:00 Brief History 45 year old female with a history of Multiple Sclerosis, Gastropareses, Chronic narcotic dependence and previous feeding tube placement presents to [facility] Emergency department with Abdominal pain and vomiting for 2 days. Abdominal pain is located in the upper epigastric area, sharp with no radiation , 9/10 intensity as per patient. Similar to prior gastroparesis episodes. Denies hematemesis. She states that today is much worse. She describes her BM' s as "slimy duck poop". She last passed gas last night. She reported some vomiting and nausea as well. Denies any fever or chills. Denies any armenian food and new medications. Pt was seen yesterday (05/27/16) in the ED by Dr. French c/o vomiting. Stable VS , labs were notable for borderline leukocytosis 10.9, borderline afebrile. Pt was treated with IV fluids and antiemetic. She was tolerating po and discharged. Admitted 05/01 for possible Bacteremia and was discharged 05/10. Blood cultures obtained 05/05/16 and 05/04/16 had all have no growth to date. Patient was evaluated in the Emergency room for several hours but no improvement in symptoms and will be admitted Hospital Course 45 year old female with a history of Multiple Sclerosis, Gastropareses, Chronic narcotic dependence and previous feeding tube placement presents to [facility] Emergency department with Abdominal pain and vomiting. Patient was placed NPO, pain treated with IV pain medications. CT showed multiple areas of wall thickening, but no antibiotics were given due to clinical picture not showing any signs of infectious etiology. Patient was able to gradually advance diet to regular meals. 1. Acute on Chronic Abdominal pain. Present on admission. Stable. Etiology is likely due to Gastroparesis but also imaging suggests nonspecific enterocolitis. Patient does not seem to have infectious clinical course and will hold off starting any antibiotics at this point. It is reasonable she may have a viral gastroenteritis. Some concern raised about narcotic seeking behaviors in previous medical records reviewed - CT findings as follows: Multiple segments of bowel wall thickening involving the small and large bowel as described consistent with a nonspecific enterocolitis, likely infectious or inflammatory. Mild associated fluid distention of a few loops of small bowel is compatible with an ileus without definite evidence of obstruction. - continue antiemetics with Reglan IV which will be beneficial for gastroparesis - advance diet as tolerated 2. Gastroparesis, chronic Etiology unclear with no history of common risk factors such as diabetes. Could be related to her Multiple sclerosis - history of Botox injection lower esophageal sphincter - recommend evaluation at [facility] concerning benefit of a gastric pacemaker placement 3. Recent hx of staph aureus bacteremia of port, poa. Stable. - continue daily Nafcillin IV to complete a course of 6 weeks (till 06/20) - patient followed by Dr. Benjamin outpatient - Appreciate ID consult with time and expertise 4. Chronic narcotic dependence pain: - Continue hoe dose fentanyl patch, Percocet. - Morphine IV to only be used for breakthrough pain 5. Multiple Sclerosis, Chronic - presumed stable. - outpatient follow up with Neurology 6. Depression/anxiety/PTSD: -Continue venlafaxine, Seroquel FOLLOW UP NEEDED: New blood pressure medication, Lisinopril added during this hospitalization. Patient needs to have BMP checked in one week with BP checked as nurses [facility]. Patient's potassium needed to be supplemented on a daily basis even with magnesium at normal levels. Patient discharged with new Rx for KCL 10meq PO daily. Levels to be checked with BMP in one week. Patient was discharged with Rx for oxycodone/APAP and Nafcillin due to being out of these medications. Exam Vital Signs (Last) Date Time Temp Pulse Resp B/P Pulse Ox O2 Delivery O2 Flow Rate FiO2 06/01/16 05:52 36.7 79 16 142/90 95 Room Air Exam GEN: AAO X3, Cooperative and pleasant, NAD, tolerating regular diet Eyes: PERRLA, EOMI, Scleral Anicteric Mouth: Moist mucous membranes Neck: Supple, no Thyromegaly, trachea midline Chest & Lungs: CTAB CV: RRR, No Murmurs/Rubs/Gallops, Abdomen: Tenderness to palpation at epigastric. Soft, Non-distended. Normal bowel tones Extremities: No edema, no cyanosis, no clubbing. Skin: Warm and dry and intact Neurological: Normal Speech, normal mood and affect. Test 05/29/16 05:05 05/29/16 09:36 05/31/16 04:40 06/01/16 04:15 Total Bilirubin 0.3mg/dL (0.0-1.2) Aspartate Amino Transf (AST/SGOT) 24U/L (0-50) Alanine Aminotransferase (ALT/SGPT) 11U/L (0-32) Alkaline Phosphatase 73U/L (25-150) Total Protein 6.5g/dL (6.4-8.4) Albumin 3.9g/dL (3.4-5.0) Lactic Acid Level 0.8mmol/L (0.4-2.0) Neutrophils (%) (Auto) 57.2% (40-74) Lymphocytes (%) (Auto) 20.1% (14-46) Monocytes (%) (Auto) 12.8% (4-12) Eosinophils (%) (Auto) 9.0% (0-5) Basophils (%) (Auto) 0.9% (0-3) White Blood Count 4.9th/mm3 (3.8-10.1) Red Blood Count 3.24mil/mm3 (3.90-5.20) Hemoglobin 9.6g/dL (12.0-15.6) Hematocrit 27.5% (35.0-46.0) Mean Corpuscular Volume 84.9fL (81-100) Mean Corpuscular Hemoglobin 29.6pg (27.0-35.0) Mean Corpuscular Hemoglobin Concent 34.9% (32.0-37.0) Red Cell Distribution Width 16.6% (12.3-15.4) Platelet Count 312bil/L (150-400) Sodium Level 144mEq/L (134-144) Potassium Level 3.5mEq/L (3.5-5.2) Chloride Level 108mEq/L (97-108) Carbon Dioxide Level 27mmol/L (18-29) Blood Urea Nitrogen 3mg/dL (6-24) Creatinine 0.70mg/dL (0.57-1.00) Estimat Glomerular Filtration Rate 128mL/min (>59) Glucose Level 90mg/dL (60-99) Calcium Level 8.6mg/dL (8.5-10.1) Magnesium Level 1.8mg/dL (1.6-2.6) Microbiology Results GI PCR panel negative BCx negative after 2 days Discharge Medications Discharge Medications Albuterol HFA (Proair HFA) 8.5 Gm Hfa.aer.ad 2 PUFFS INHALATION Q4H Prescribed by: WILDER ALRDICH Baclofen (Baclofen) 10 Mg Tablet 10 MG PO BID (Reported) Beclomethasone Dipropionate (Qvar) 8.7 Gm Aer.w.adap 8.7 GM INHALATION BID ( Reported) Ergocalciferol (Vitamin D2) (Drisdol) 50,000 Unit Capsule 50,000 UNIT PO Every Saturday (Reported) Fentanyl 25 mcg/hr Patch (Fentanyl 25 mcg/hr Patch) 1 Each Patch.td72 1 PATCH TOP Q72H (Reported) Fluticasone Propionate (Fluticasone Propionate) 50 Mcg/Actuation [place].susp 1 SPRAY NS DAILY (Reported) Each nostril Lisinopril (Lisinopril) 5 Mg Tablet 5 MG PO DAILY Prescribed by: INES LINARES DO Menthol/Zinc Oxide Oint (Calmoseptine Oint) 71 Gm Oint...g. 1 APPLIC TOPICAL 3- 4 X daily (Reported) 44-20.6% Nafcillin in Dextrose,Iso-Osm (Nafcillin 2 gm/ 100 ml Inj) 2 Gm/100 Ml Froz.piggy 12 GM IV for 24hrs Prescribed by: INES LINARES DO Omeprazole (Omeprazole) 20 Mg Capsule.dr 20 MG PO BID (Reported) Oxybutynin Chloride ER (Oxybutynin Chloride ER) 10 Mg Tab.er.24 10 MG PO DAILY ( Reported) Potassium Chloride (Potassium Chloride) 10 Meq Tab.er.prt 10 MEQ PO DAILY TAKE WITH FOOD Prescribed by: INES LINARES DO Pregabalin (Lyrica) 150 Mg Capsule 150 MG PO BID (Reported) Venlafaxine (Venlafaxine) 75 Mg Tablet 150 MG PO am (Reported) Venlafaxine (Venlafaxine) 75 Mg Tablet 75 MG PO BIDWM (Reported) As needed Hydromorphone (Dilaudid) 2 Mg Tablet 4 MG PO Q4H PRN PRN Pain (Reported) Mupirocin (Mupirocin Ointment) 22 Gm Oint...g. 1 APPLIC TOPICAL TID PRN PRN . ( Reported) For infected hair follicles Ondansetron ODT (Ondansetron ODT) 4 Mg Tab.rapdis 4 MG PO TID PRN PRN For Nausea (Reported) Ondansetron ODT (Zofran ODT) 4 Mg Tablet 4 MG PO Q4H PRN PRN For Nausea Prescribed by: NORMAN FRENCH MD Quetiapine Fumarate (Seroquel) 50 Mg Tablet 50 MG PO HS PRN PRN sleep Prescribed by: SAMM ZULETA MD Zolpidem (Zolpidem) 5 Mg Tablet 5 MG PO HS PRN PRN Insomnia (Reported) oxyCODONE-Acetaminophen 10-325 mg (oxyCODONE-Acetaminophen 10-325 mg) 1 Each Tablet 1 TABLET PO Q6H PRN PRN For Pain Prescribed by: INES LINARES DO Additional med instructions Potassium chloride 10 meq to be taken daily by mouth. Followup Plan Discharge Diet: Other (Continue to advance your diet as tolerated. Do not overdue.) Discharge Activity: Limited until seen by PCP Patient Instructions Please continue to take your potassium on a daily basis, and have your PCP recheck levels at your 2 week follow up visit. Go to ED if you have any sudden onset of severe abdominal pain with continuous vomiting and/or diarrhea. Follow-up Provider: Milan Bryant DO Follow-up with PCP in: 2 weeks Time spent 40 minutes Attending Statement I have seen and evaluated patient in addition to directly superving care provide by resident physician. I agree with above document copies to: Milan Bryant Fumiko O DO Jun 01, 2016 09:07 Alcon Thomas DO Jun 02, 2016 11:43
[2016-06-01] MEDS ORDERED: oxyCODONE-Acetamin 10-325 mg Tablet PO PRN (10:00)
[2016-06-01] MEDS ORDERED: NAFC2FRO IV (10:30)
[2016-06-01] MEDS ORDERED: OXYC-466 PO (10:58)
[2016-06-01] MEDS ORDERED: LISI-571 PO (12:06)
--- NOTE | 2016-06-01 12:11 | NUR ---
Social Work: Discharge Data: Pt is on day 4 of hospitalization. EMR reviewed, pt d/c orders are in. SOLUTION ANALYST called [facility] and notified Romulo Chandler [phone] of pt's d/c today. SOLUTION ANALYST called [facility] and faxed over the prescription for pt's IVABX and notified them that pt will d/c today. No further d/c planning needs identified at this time. SOLUTION ANALYST will continue to follow if needs arise. Assessment: Pt who is independent at baseline. Plan: Pt will d/c home via POV today with resume [facility] and resume [facility] for IVABX. No further d/c planning needs identified at this time. SOLUTION ANALYST will continue to follow if needs arise. BONNIE Bernal
--- NOTE | 2016-06-01 13:40 | NUR ---
Discharge Pt discharged with friend home via private vehicle. Pt verbalized understanding of discharge and Rx instructions, personal belongings accounted for and left with pt.
== END 2016-06-01 13:53 | disposition home health service (06) | DRG 249 ==
LOC: SED 13:40 → MPC 20:39 → OBSVTOIN 20:39
PROVIDERS: ADMIT Hospitalist; ATTEND Hospitalist
DX: A09 Infectious gastroenteritis and colitis, unspecified (principal); F11.20 Opioid dependence, uncomplicated; G35 Multiple sclerosis; E86.0 Dehydration; K21.9 Gastro-esophageal reflux disease without esophagitis; J45.909 Unspecified asthma, uncomplicated; F17.200 Nicotine dependence, unspecified, uncomplicated; F43.10 Post-traumatic stress disorder, unspecified; F41.8 Other specified anxiety disorders; Z79.51 Long term (current) use of inhaled steroids; K31.84 Gastroparesis

== ENCOUNTER 2016-06-03 10:28 | Emergency (ER) | payer MEDICAID, OTHER ==
[~2016-06-03] VITALS: Ht 157.5 cm; Wt 50.0 kg
[~2016-06-03 10:28] MED LIST changes: +LISI-571 PO; +NAFC2FRO IV; +POTA10TA38 PO
[2016-06-03 10:41] VITALS: PULSE 74; RESP 22; O2SAT 98
[2016-06-03 11:17] LABS: EOSINOPHILS % (AUTO) 2.2 % (0-5); MONOCYTES % (AUTO) 8.2 % (4-12); Mean Corpuscular Hemoglobin 29.2 pg (27.0-35.0); NEUTROPHILS % (AUTO) 71.3 % (40-74); Platelet Count 369 bil/L (150-400)
[2016-06-03] MEDS ORDERED: MetoCLOpramide 5 mg/mL 2 mL Inj IVPUSH ONE (11:20)
[2016-06-03] MEDS ORDERED: HYDROmorphone 1 mg/mL Inj IVPUSH ONE ×2 (11:20→13:00)
[2016-06-03] MEDS ORDERED: 0.9% Sodium Chloride 1,000 ML IV ONE ×2 (11:20→13:00)
[2016-06-03] MEDS ORDERED: Ondansetron 2 mg/mL 2 mL Inj IVPUSH ONE ×3 (11:20→14:45)
[2016-06-03] MEDS ORDERED: Haloperidol 5 mg/mL Inj IVPUSH ONE ×2 (11:20→13:00)
[2016-06-03 11:36] VITALS: BP 195/100; PULSE 69; RESP 18; O2SAT 100
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
[2016-06-03 13:24] VITALS: BP 169/106; PULSE 74; RESP 16; O2SAT 92
[2016-06-03 14:45] VITALS: BP 161/89; PULSE 60; RESP 18; O2SAT 96
[2016-06-03] MEDS ORDERED: HYDROmorphone 0.5 mg/0.5 mL iSecure Syringe IVPUSH ONE (14:45)
[2016-06-03 15:23] VITALS: BP 178/96; PULSE 89; RESP 16; O2SAT 97
== END 2016-06-03 15:27 | disposition home or self-care (01) ==
LOC: SED 10:28
DX: R11.2 Nausea with vomiting, unspecified (principal); I10 Essential (primary) hypertension; R10.9 Unspecified abdominal pain; R19.7 Diarrhea, unspecified; R50.9 Fever, unspecified; J45.909 Unspecified asthma, uncomplicated; E78.5 Hyperlipidemia, unspecified; Z87.891 Personal history of nicotine dependence; Z88.8 Allergy status to other drugs, medicaments and biological substances; Z88.5 Allergy status to narcotic agent
CPT/HCPCS: 36415; 80053; 85025; 96361; 96374; 96375; 96376; 99285; J1170; J1630; J2405; J2765; J7030

== ENCOUNTER 2016-06-06 16:56 | Observation (INO) | payer OTHER ==
[~2016-06-06] VITALS: Ht 157.5 cm; Wt 52.6 kg
[2016-06-06 17:00] VITALS: BP 192/103; PULSE 81; RESP 20; O2SAT 99
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
[2016-06-06 19:34] LABS: BASOPHILS % (AUTO) 0.8 % (0-3); EOSINOPHILS % (AUTO) 3.9 % (0-5); MONOCYTES % (AUTO) 11.7 % (4-12); Mean Corpuscular Hemoglobin 29.3 pg (27.0-35.0); Mean Corpuscular Volume 86.5 fL (81-100); NEUTROPHILS % (AUTO) 49.5 % (40-74); Platelet Count 371 bil/L (150-400)
[2016-06-06] MEDS ORDERED: Labetalol 5 mg/mL 4 mL Inj IVPUSH ONE (20:20)
[2016-06-06] MEDS ORDERED: Alum-Mag Hydrox-Simeth 30 mL Suspension PO PRN (20:25)
[2016-06-06] MEDS ORDERED: Polyethylene Glycol (PEG) 17 Gm Powder PO PRN (20:25)
[2016-06-06] MEDS ORDERED: ERGO2000 PO (20:48)
[2016-06-06] MEDS ORDERED: METO50TA3 PO (20:55)
[2016-06-06 21:33] VITALS: BP 174/100; PULSE 67; RESP 16; O2SAT 97
[2016-06-06 21:45] VITALS: BP 181/106; PULSE 81
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
[2016-06-07] VITALS (9 sets, daily range): BP systolic 160–171; BP diastolic 91–100; PULSE 69–87; RESP 18; O2SAT 95–100
[2016-06-07] MEDS: Heparin 5,000 Unit/mL Inj SUBQ SCH ×3 (00:43→16:54)
[2016-06-07] MEDS: oxyCODONE-Acetamin 10-325 mg Tablet PO PRN ×4 (01:30→20:59)
[2016-06-07] MEDS ORDERED: NAFCILLIN IN DEXTROSE ISO OSM IV SCH (10:15)
[2016-06-07] MEDS ORDERED: VENLAFAXINE 150 MG PO SCH (10:15)
[2016-06-07] MEDS ORDERED: [UNRECOGNIZED DRUG - OTHER] IV SCH (10:15)
[2016-06-07] MEDS ORDERED: Albuterol 2.5 mg/3 mL Inhalation Solution NEB PRN (11:00)
[2016-06-07] MEDS: Nafcillin Inj 12,000 MG in Dextrose 5% 1,000 ML IV SCH (11:50)
[2016-06-07] MEDS: Tolterodine ER 4 mg ER24 Capsule PO SCH (11:51)
[2016-06-07] MEDS: Fluticasone 100 mCg Inhaler INHALATION SCH ×2 (11:52→20:56)
--- NOTE | 2016-06-07 13:56 | NUR ---
Social Work: Screening Data: Pt is a 46 y/o female admitted for uncontrolled hypertension. Pt's PCP is Bryant, pt's insurance is [employer] blind/disabled. EMR reviewed. From previous admissions, pt has a history with [facility], [facility] at home, and with [facility]. PASTA PRESS OPERATOR requested UR specialist to fax over [facility] clinicals to pt's piano case and bench assembler Erum Shaw. PASTA PRESS OPERATOR will continue to follow for possible needs. Assessment: Pt with [facility]. Plan: Pt will likely d/c home via POV when medically stable with [facility]. Possible HH need. PASTA PRESS OPERATOR will continue to follow for other d/c planning needs. BONNIE Bernal
[2016-06-07] MEDS: Ondansetron 2 mg/mL 2 mL Inj IVPUSH PRN ×2 (14:06→21:03)
[2016-06-07] MEDS ORDERED: VENLAFAXINE 75 MG PO SCH (17:30)
--- NOTE | 2016-06-07 17:49 | PCM.PNMED ---
Subjective Date of Service Jun 07, 2016 Subjective No overnight event, patient BP continues to trend downward. Patient reports hypertensive in the past, became hypotensive last year and had to tiltrate down her oral antihypertensive medication. She also reports headaches. B/l neck ache extending to forehead. Comes and goes in severity, but has been ongoing since last week. She states vaginal canal feels "yeasty" Exam Vital Signs Vital Sign - Last Date Time Temp Pulse Resp B/P Pulse Ox O2 Delivery O2 Flow Rate FiO2 06/07/16 16:51 160/98 06/07/16 13:29 37.6 06/07/16 12:28 84 18 100 Room Air Intake and Output 06/06/16 06/06/16 06/07/16 Cumulative From/Thru 15:00 23:00 07:00 06/06/16 21:33 - 06/07/16 06:25 Intake Total 1400 ml 1400 ml Output Total 2000 ml 2000 ml Balance -600 ml -600 ml Intake Oral 1400 ml 1400 ml Output Urine Total 2000 ml 2000 ml # Bowel Movements 0 0 Exam General: Alert, Oriented X3, Cooperative, resting comfortably in bed Eyes: PERRLA, Scleral Anicteric Mouth: Mouth Normal, Mucous Membranes Moist/[place] Neck: Supple,no jvd Chest & Lungs: Clear to auscultation & percussion, No adventitious breath sounds, no crackles, no wheeze Cardiovascular: RRR, no murmur, rubs, or gallops. Pulses: Radial (present and equal), Dorsalis Pedi (present and equal) Abdomen: Soft, Non-distended, some epigastric tenderness on palpation Normoactive bowel tones. Musculoskeletal: Unremarkable. Normal range of motion, no swollen or erythematous joints Extremities: No edema, no cyanosis, no clubbing. Skin: No rashes. Warm and dry, no erythematous areas Neurological: Grossly neurologically intact, Normal Speech, Sensation Intact Lymphatic: Lymph nodes Cervical and Axillary not palpable. IVs and Medications Medications Reviewed: Medications were reviewed in detail Lab and Diagnostics Result Diagram: 06/06/16192406/06/161924 Assessment & Plan Mery Martinez is a 46 year old female with a history of Multiple Sclerosis, Gastropareses, Chronic narcotic dependence and previous feeding tube placement. Currently on IV antibiotics for MSSA Bacteremia who presents to [facility] Emergency department with referral from Dr Benjamin due to Uncontrolled Hypertension 1. Uncontrolled Hypertension. Present on admission Likely related to opioid withdrawal, medication non compliance and Anxiety. No evidence of Stroke symptoms. - monitor on telemetry - continue Lisinopril and Metoprolol, titrate dosing to maximum. - consider adding an addition antihypertensive like a diuretic 2. Gastroparesis, chronic Etiology unclear with no history of common risk factors such as diabetes. Could be related to her Multiple sclerosis - history of Botox injection lower esophageal sphincter - recommend evaluation at [facility] concerning benefit of a gastric pacemaker placement 3. Chronic narcotic dependence pain: -Continue fentanyl patch, Percocet. - Due to acute pain will start morphine IV until more controlled. 4. Multiple Sclerosis, Chronic presumed stable. - outpatient follow up with Neurology 5. Depression/anxiety/PTSD: -Continue venlafaxine, Seroquel 6. Probably Vaginal yeast infection -one time fluconazole 7. Opioid dependency, present on admission, chronic -Restarted fentanyl patch 8. MSSA Bacteremia, present on admission, chronic -Cont cont nafcillin till 06/20. - Acetaminophen as needed for mild pain/fever/headache - Bowel regimen as needed - Antiemetic as needed Disposition: Anticipate discharge tomorrow if SBP <150mmhg VTE Prophylaxis: Sub-Q Heparin (Unfractionated) VTE Mechanical Devices: Intermittant Pneumatic CD Resuscitation Status: CPR: Attempt Resuscitation Attending Statement The patient was seen and examined together with Dr. David Mcrae on 06/07/2016 and I agree with the history, exam and plan as outlined in the note above. David Mcrae DO Jun 07, 2016 17:49 Tez Torres MD Jun 08, 2016 13:27
[2016-06-07] MEDS ORDERED: Sodium Chloride LOK Flush 10 mL Syringe IVFLUSH PRN ×2 (18:00)
[2016-06-07] MEDS ORDERED: Potassium Chloride 20 mEq SR Tablet PO ONE ×2 (18:05→18:10)
--- NOTE | 2016-06-07 19:28 | NUR ---
ABX Nafcillin started and Picc line in place. Diflucan for vaginal yeast infection. Stool sent to r/o CDiff, enteric precautions in place, reports she was tested negative last week. Probiotic ordered.
[2016-06-07] MEDS: Lactobacillus Rhamnosus 10 Bil Unit Capsule PO SCH (20:56)
[2016-06-07] MEDS: Pantoprazole 20 mg ER24 Tablet PO SCH (20:57)
[2016-06-08 00:14] VITALS: BP 159/96; PULSE 62; RESP 18; O2SAT 97
[2016-06-08] MEDS: Heparin 5,000 Unit/mL Inj SUBQ SCH ×2 (00:22→07:35)
--- NOTE | 2016-06-08 01:42 | NUR ---
ADMIT PATIENT ARRIVED IN ROOM AT 1999 ON 06/06. PATIENT HAVING 10/10 PAIN IN NECK. PATIENT HAS A PICC LINE WITH A CONTINUOS IV ANTIBIOTIC INFUSING PER HOME PUMP. PATIENT ADMITTED FOR HYPERTENSION.
[2016-06-08 05:20] VITALS: PULSE 80
[2016-06-08 05:38] VITALS: BP 160/88; PULSE 71; RESP 18; O2SAT 95
[2016-06-08 06:04] LABS: Mean Corpuscular Hemoglobin 29.1 pg (27.0-35.0); Mean Corpuscular Volume 88.2 fL (81-100)
[2016-06-08] MEDS: Pantoprazole 20 mg ER24 Tablet PO SCH (07:33)
[2016-06-08] MEDS: Lactobacillus Rhamnosus 10 Bil Unit Capsule PO SCH (07:34)
[2016-06-08] MEDS: Tolterodine ER 4 mg ER24 Capsule PO SCH (07:35)
[2016-06-08] MEDS: Fluticasone 100 mCg Inhaler INHALATION SCH (07:35)
[2016-06-08] MEDS: oxyCODONE-Acetamin 10-325 mg Tablet PO PRN ×2 (07:36→14:19)
[2016-06-08 08:00] VITALS: PULSE 83
[2016-06-08] MEDS: Ondansetron 2 mg/mL 2 mL Inj IVPUSH PRN (09:03)
[2016-06-08 09:37] VITALS: BP 134/84; PULSE 72; RESP 18; O2SAT 97
--- NOTE | 2016-06-08 10:05 | NUR ---
faxed H&P to pt's VALERIE Shaw,
[2016-06-08] MEDS ORDERED: LISI10TA PO (10:31)
[2016-06-08] MEDS ORDERED: METO-272 PO (10:31)
[2016-06-08] MEDS: Nafcillin Inj 12,000 MG in Dextrose 5% 1,000 ML IV SCH (11:10)
[2016-06-08] MEDS ORDERED: OXYC1TAB24 PO (13:16)
--- NOTE | 2016-06-08 13:21 | PCM.DIMED ---
David Mcrae DO 06/08/16 1321: Discharge Instructions Date of Service Jun 08, 2016 Dates of Hospitalization Jun 06, 2016 at 20:15 Discharge Diagnosis Discharge Diagnosis Uncontrolled Hypertension. Present on admission Gastroparesis, chronic Chronic narcotic dependence pain: Multiple Sclerosis, Chronic Depression/anxiety/PTSD: Probably Vaginal yeast infection Opioid dependency, present on admission, chronic MSSA Bacteremia, present on admission, chronic Diet No restrictions Activity No restrictions Call your provider Chest pain Patient Instructions For your visit, you were admitted for hypertensive urgency. We have made changes to your medications to better control your blood pressure. Please take: Lisinopril 10mg twice daily Metoprolol XL 50mg every morning Please keep your appt with primary care provider this coming Sunday 06/11 Tez Torres MD 06/09/16 1317: David Mcrae DO Jun 08, 2016 13:21 Tez Torres MD Jun 09, 2016 13:17
--- NOTE | 2016-06-08 13:34 | NUR ---
Social Work: Discharge Data: Pt is on day 2 of hospitalization. EMR reviewed. D/C orders are in. IT RISK AND ASSURANCE SENIOR MANAGER called [facility] and spoke with BONNIE Shane faxed over the d/c orders with the prescription orders on it. IT RISK AND ASSURANCE SENIOR MANAGER updated RN on home infusion status and that medications are to be delivered today. No further d/c planning needs at this time. IT RISK AND ASSURANCE SENIOR MANAGER will continue to follow if needs arise. Assessment: Pt with VALERIE. Plan: Pt will d/c home via POV today with [facility] for home IVABX infusion and with VALERIE. No further d/c planning needs at this time. IT RISK AND ASSURANCE SENIOR MANAGER will continue to follow if needs arise. BONNIE Bernal
[2016-06-08 14:10] VITALS: BP 150/93; PULSE 72; RESP 18; O2SAT 95
[2016-06-08] MEDS ORDERED: NAFC2FRO IV (15:49)
--- NOTE | 2016-06-08 16:46 | PCM.DC.MED ---
Discharge Summary Date of Service Jun 08, 2016 Dates of Hospitalization Date of Hospital Admission Jun 06, 2016 at 20:15 Date of Discharge: Jun 08, 2016 Providers: Admitting Physician: Hakeem Moffett MD Primary Care Physician: Milan Bryant DO Attending Physician: Hakeem Moffett MD Diagnosis at Time of Discharge Diagnosis at Time of Discharge Uncontrolled Hypertension. Present on admission Gastroparesis, chronic Chronic narcotic dependence pain: Multiple Sclerosis, Chronic Depression/anxiety/PTSD: Probably Vaginal yeast infection Opioid dependency, present on admission, chronic MSSA Bacteremia, present on admission, chronic Brief History Mery Martinez is a 46 year old female with a history of Multiple Sclerosis, Gastropareses, Chronic narcotic dependence and previous feeding tube placement. Currently on IV antibiotics for MSSA Bacteremia who presents to [facility] Emergency department with referral from Dr Benjamin due to Uncontrolled Hypertension Associated symptoms includes subjective fever, Severe Occipital and cervical neck pain. the pain radiates down towards her forearms. She also complains of persistent diarrhea (x10 daily) and mild abdominal pain since her discharge last week. She denies any chest pain or dyspnea. Patient has multiple visits to the Emergency room due to pain issues. The patient was recently hospitalized at [facility] from 05/01 to 05/10 and earlier this month. The patient's three blood cultures from 05/01/16 were all positive for MSSA which was henry-sensitive to all tested antibiotics. A transthoracic echocardiogram showed no evidence for vegetation. Currently the patient has a PICC line and on nacfillin therapy till June 20. The patient's EKG today was negative for any abnormalities. The patient's repeat blood pressure today is still extraordinarily elevated considering her near perfect compliance with her lisinopril and metoprolol therapies which has previously controlled her BP. Case discussed with Dr Sands, plan to admit for BP control. Labetalol IV given in the ED. Hospital Course Mery Martinez is a 46 year old female with a history of Multiple Sclerosis, Gastropareses, Chronic narcotic dependence and previous feeding tube placement. Currently on IV antibiotics for MSSA Bacteremia who presents to [facility] Emergency department with referral from Dr Benjamin due to Uncontrolled Hypertension. 1. Uncontrolled Hypertension. Present on admission Likely related to opioid withdrawal, medication non compliance and Anxiety. No evidence of Stroke symptoms. - monitor on telemetry without event - D/c patient on lisinopril 10mg BID and metoprolol XL 50mg daily 2. Gastroparesis, chronic Etiology unclear with no history of common risk factors such as diabetes. Could be related to her Multiple sclerosis - history of Botox injection lower esophageal sphincter - recommend evaluation at [facility] concerning benefit of a gastric pacemaker placement 3. Chronic narcotic dependence pain: -Continue fentanyl patch, Percocet. - D/c patient on Percocet 5-325mg 1-2 tab Q4-6hrs #12, in addition to continuing home fentanyl patch 4. Multiple Sclerosis, Chronic presumed stable. - outpatient follow up with Neurology 5. Depression/anxiety/PTSD: -Continue venlafaxine, Seroquel 6. Probably Vaginal yeast infection -one time fluconazole 7. Opioid dependency, present on admission, chronic -Restarted fentanyl patch 8. MSSA Bacteremia, present on admission, chronic -Cont cont nafcillin till 06/20. Exam Vital Signs (Last) Date Time Temp Pulse Resp B/P Pulse Ox O2 Delivery O2 Flow Rate FiO2 06/08/16 14:10 36.8 72 18 150/93 95 Room Air Exam GEN: NAD, Pt laying comfortably in bed HEENT: AT/NC, PERRLA, EOMI CARDIAC: RRR, No M/R/G PULM: CTAB ABD: Soft, NT, ND, Positive BS in all quadrants EXT: No C/C/E NEURO: Alert and oriented x3; Following all commands, No focal weakness appreciated Test 06/06/16 19:25 06/08/16 05:45 Neutrophils (%) (Auto) 49.5% (40-74) Lymphocytes (%) (Auto) 33.8% (14-46) Monocytes (%) (Auto) 11.7% (4-12) Eosinophils (%) (Auto) 3.9% (0-5) Basophils (%) (Auto) 0.8% (0-3) Total Bilirubin 0.2mg/dL (0.0-1.2) Aspartate Amino Transf (AST/SGOT) 16U/L (0-50) Alanine Aminotransferase (ALT/SGPT) 8U/L (0-32) Alkaline Phosphatase 68U/L (25-150) C-Reactive Protein 0.4mg/dL (0.0-0.5) Total Protein 6.4g/dL (6.4-8.4) Albumin 3.7g/dL (3.4-5.0) Procalcitonin < 0.05ng/mL (See Comment) Hold Parisi Top Tube Received (Received) White Blood Count 4.9th/mm3 (3.8-10.1) Red Blood Count 3.13mil/mm3 (3.90-5.20) Hemoglobin 9.1g/dL (12.0-15.6) Hematocrit 27.6% (35.0-46.0) Mean Corpuscular Volume 88.2fL (81-100) Mean Corpuscular Hemoglobin 29.1pg (27.0-35.0) Mean Corpuscular Hemoglobin Concent 33.0% (32.0-37.0) Red Cell Distribution Width 17.5% (12.3-15.4) Platelet Count 309bil/L (150-400) Sodium Level 145mEq/L (134-144) Potassium Level 3.7mEq/L (3.5-5.2) Chloride Level 107mEq/L (97-108) Carbon Dioxide Level 27mmol/L (18-29) Blood Urea Nitrogen 6mg/dL (6-24) Creatinine 0.80mg/dL (0.57-1.00) Estimat Glomerular Filtration Rate 110mL/min (>59) Glucose Level 97mg/dL (60-99) Calcium Level 9.0mg/dL (8.5-10.1) Discharge Medications Discharge Medications Albuterol HFA (Proair HFA) 8.5 Gm Hfa.aer.ad 2 PUFFS INHALATION Q4H Prescribed by: WILDER ALDRICH Baclofen (Baclofen) 10 Mg Tablet 10 MG PO BID (Reported) Beclomethasone Dipropionate (Qvar) 8.7 Gm Aer.w.adap 8.7 GM INHALATION BID ( Reported) Ergocalciferol (Vitamin D2) (Vitamin D2) 2,000 Unit Tablet 50,000 UNIT PO WEEKLY (Reported) every saturday Fentanyl 25 mcg/hr Patch (Fentanyl 25 mcg/hr Patch) 1 Each Patch.td72 1 PATCH TOP Q72H (Reported) Fluticasone Propionate (Fluticasone Propionate) 50 Mcg/Actuation [place].susp 1 SPRAY NS DAILY (Reported) Each nostril Lisinopril (Lisinopril) 10 Mg Tablet 10 MG PO BID Prescribed by: DAYRON MCRAE DO Menthol/Zinc Oxide Oint (Calmoseptine Oint) 71 Gm Oint...g. 1 APPLIC TOPICAL 3- 4 X daily (Reported) 44-20.6% Metoprolol Succinate ER (Metoprolol Succinate ER) 50 Mg Tab.er.24h 50 MG PO DAILY Prescribed by: DAYRON MCRAE DO Nafcillin in Dextrose,Iso-Osm (Nafcillin 2 gm/ 100 ml Inj) 2 Gm/100 Ml Froz.piggy 12 GM IV Q24H Prescribed by: DAYRON MCRAE DO Omeprazole (Omeprazole) 20 Mg Capsule.dr 20 MG PO BID (Reported) Oxybutynin Chloride ER (Oxybutynin Chloride ER) 10 Mg Tab.er.24 10 MG PO DAILY ( Reported) Potassium Chloride (Potassium Chloride) 10 Meq Tab.er.prt 10 MEQ PO DAILY TAKE WITH FOOD Prescribed by: INES LINARES DO Pregabalin (Lyrica) 150 Mg Capsule 150 MG PO BID (Reported) Venlafaxine (Venlafaxine) 75 Mg Tablet 150 MG PO am (Reported) Venlafaxine (Venlafaxine) 75 Mg Tablet 75 MG PO BIDWM (Reported) As needed Hydromorphone (Dilaudid) 2 Mg Tablet 4 MG PO Q4H PRN PRN Pain (Reported) Mupirocin (Mupirocin Ointment) 22 Gm Oint...g. 1 APPLIC TOPICAL TID PRN PRN . ( Reported) For infected hair follicles Ondansetron ODT (Ondansetron ODT) 4 Mg Tab.rapdis 4 MG PO TID PRN PRN For Nausea (Reported) Ondansetron ODT (Zofran ODT) 4 Mg Tablet 4 MG PO Q4H PRN PRN For Nausea Prescribed by: NORMAN FRENCH MD Quetiapine Fumarate (Seroquel) 50 Mg Tablet 50 MG PO HS PRN PRN sleep Prescribed by: SAMM ZULETA MD Zolpidem (Zolpidem) 5 Mg Tablet 5 MG PO HS PRN PRN Insomnia (Reported) oxyCODONE-Acetaminophen 10-325 mg (oxyCODONE-Acetaminophen 10-325 mg) 1 Each Tablet 1 TABLET PO Q6H PRN PRN For Pain Prescribed by: INES LINARES DO oxyCODONE-Acetaminophen 5-325 mg (oxyCODONE-Acetaminophen 5-325 mg) 1 Each Tablet 1-2 TAB PO Q6H PRN PRN For Pain Prescribed by: DAYRON MCRAE DO Followup Plan Discharge Diet: No restrictions Discharge Activity: No restrictions Patient Instructions For your visit, you were admitted for hypertensive urgency. We have made changes to your medications to better control your blood pressure. Please take: Lisinopril 10mg twice daily Metoprolol XL 50mg every morning Please keep your appt with primary care provider this coming Sunday 06/11 Follow-up Provider: Milan Bryant DO Time spent 33 minutes Attending Statement The patient was seen and examined together with Dr. Dayron Mcrae on 06/08/2016 and I agree with the history, exam and plan as outlined in the note above. copies to: Milan Bryant Phuc H DO Jun 08, 2016 16:46 Tez Torres MD Jun 09, 2016 13:19
--- NOTE | 2016-06-08 16:58 | NUR ---
Discharge D/C to home with . Picc line intact and SL. ABX to start at home with home delivery. Discharge instructions and rxs discussed and provided. Care notes provided. No question with f/u plan at this time. Pt escorted to awaiting in vehicle by PLANT CARE WORKER and wheelchair with all belongings.
== END 2016-06-08 16:35 | disposition home health service (06) ==
LOC: SED 16:56 → MPC 20:15
PROVIDERS: ADMIT Hospitalist; ATTEND Hospitalist
DX: I10 Essential (primary) hypertension (principal); A49.01 Methicillin susceptible Staphylococcus aureus infection, unspecified site; G35 Multiple sclerosis; F41.8 Other specified anxiety disorders; K31.84 Gastroparesis; F11.20 Opioid dependence, uncomplicated; F43.10 Post-traumatic stress disorder, unspecified; K21.9 Gastro-esophageal reflux disease without esophagitis; J45.909 Unspecified asthma, uncomplicated; Z87.891 Personal history of nicotine dependence
CPT/HCPCS: 36415; 80048; 80053; 82308; 85025; 85027; 86140; 87040; 87493; 99285; G0378; J1644; J2405; J7070

== ENCOUNTER 2016-12-18 11:31 | Day surgery (SDC) | payer OTHER ==
[2016-12-18] VITALS (8 sets, daily range): BP systolic 108–136; BP diastolic 61–95; PULSE 72–105; RESP 16; O2SAT 91–98
[~2016-12-18] VITALS: Ht 157.5 cm; Wt 48.0 kg
[~2016-12-18 11:31] MED LIST changes: +Botulinum Toxin Type-A 100 unit Inj IM ONE; +ERGO2000 PO; -ERGO500050 PO; -LISI-571 PO; +LISI10TA PO; +Lactated Ringer's 1,000 ML IV ONE; +METO-272 PO; +OXYC1TAB24 PO
[2016-12-18] MEDS ORDERED: Ketamine 10 mg/mL 20 mL Inj ONE (11:32)
[2016-12-18] MEDS ORDERED: Propofol 10,000 mCg/mL 20 mL Inj ONE (11:32)
[2016-12-18] MEDS ORDERED: Glycopyrrolate 0.2 MG/ML 1mL Inj ONE (11:32)
--- NOTE | 2016-12-18 12:46 | PCM.HPANE ---
Patient Data Date of Service: Dec 18, 2016 Surgeon Admitting Provider: Attending Provider:Braulio Sibley MD Primary Care Physician:Braulio Jackson DO Other Provider: Reason for Visit Gastroparesis Ht/WT & BMI Height (Feet): 5 Height (Inches): 2 Weight (Kilograms): 48 Body Mass Index 19.00 Allergies Coded Allergies: cisapride (Verified Allergy, Severe, Vomiting, 06/06/16) gabapentin (Verified Allergy, Severe, Hallucination x3 days, 06/06/16) granisetron (Verified Allergy, Severe, UNABLE TO WALK, 06/06/16) CAN have ondansitron/zofran without problems codeine (Verified Adverse Reaction, Intermediate, GI upset, 06/07/16) tetracycline (Verified Adverse Reaction, Mild, pain, hyperemesis, 06/06/16) Past Anesthesia History Anesthesia History: Denies:: Anesthesia Reactions, Fam Anesthesia Reaction, Fam Malignant Hypertherm, Malignant Hyperthermia Diabetes History Hx Diabetes?: No MRSA MRSA: No Medications Hypertension Medication: No Home Meds Incl Beta Phong: No Active Scripts oxyCODONE-Acetaminophen 5-325 mg 1 Each Tablet1-2 Tab PO Q6H PRN For Pain #12 TABLET Ref 0 Prov:David Mcrae DO 06/08/16 oxyCODONE-Acetaminophen 10-325 mg 1 Each Tablet1 Tablet PO Q6H PRN For Pain #30 TABLET Ref 0 Prov:Daphnie Wise DO 06/01/16 Ondansetron ODT (Zofran ODT)4 Mg Tablet4 Mg PO Q4H PRN For Nausea #14 TABLET Prov:Owen Sloan MD 05/27/16 Albuterol HFA (Proair HFA)8.5 Gm Hfa.aer.ad2 Puffs INHALATION Q4H #1 INHALER Prov:Ulices Sabillon MD 12/25/15 Quetiapine Fumarate (Seroquel)50 Mg Kbgrut96 Mg PO HS PRN sleep #30 TABLET Ref 0 Prov:Nikunj Hernandez MD 10/08/15 Reported Medications Ergocalciferol (Vitamin D2) (Vitamin D2)2,000 Unit Dheqrn48,000 Unit PO WEEKLY every saturday06/06/16 Venlafaxine 75 Mg Mpgkzj93 Mg PO BIDWM Ref 0 04/11/16 Baclofen 10 Mg Yenkyq70 Mg PO BID Ref 0 12/22/15 Pregabalin (Lyrica)150 Mg Gngllqb759 Mg PO BID 30 Days Ref 0 12/22/15 Hydromorphone (Dilaudid)2 Mg Tablet4 Mg PO Q4H PRN Pain 12/22/15 Oxybutynin Chloride ER 10 Mg Tab.er.2410 Mg PO DAILY Ref 0 12/22/15 Zolpidem 5 Mg Tablet5 Mg PO HS PRN Insomnia #30 10/05/15 Venlafaxine 75 Mg Rbymkq899 Mg PO am #90 10/05/15 Fluticasone Propionate 50 Mcg/Actuation [place].susp1 [place] NS DAILY Each nostril 10/05/15 Fentanyl 25 mcg/hr Patch 1 Each Patch.td721 Patch TOP Q72H #10 10/05/15 Menthol/Zinc Oxide Oint (Calmoseptine Oint)71 Gm Oint...g.1 Applic TOPICAL 3-4 X daily #1 TUBE 44-20.6% 10/05/15 Omeprazole 20 Mg Capsule.dr20 Mg PO BID 30 Days Ref 0 11/18/13 Mupirocin (Mupirocin Ointment)22 Gm Oint...g.1 Applic TOPICAL TID PRN . #1 TUBE Ref 0 For infected hair follicles 11/18/13 Beclomethasone Dipropionate (Qvar)8.7 Gm Aer.w.adap8.7 Gm INHALATION BID 11/18/13 History History of ENT Problems?: Yes HEENT History: Positive for:: Dysphagia Denies:: Cataracts Sinus Problem Denture Type: None Teeth Condition: Broken Teeth Missing Teeth Hx of Heart Problems?: No Cardiovascular History: Positive for:: Hypertension (NO MEDICATIONs) Denies:: AICD Cardiac Surgery Chest Pain Congestive Heart Failure Coronary Artery Disease Edema Heart Murmur Irregular Heartbeat Pacemaker Thrombophlebitis Other Cardiac History: NO mi Hx of Respiratory Problem?: Yes Respiratory History: Positive for:: Asthma (albuterol twice a day) Dyspnea Pneumonia (2016) Use of Inhalers / NEBS Denies:: COPD Chest Surgery Emphysema Hemoptysis Oxygen Administration Tuberculosis Use of C-PAP Machine Hx Neurologic Problems?: Yes Neurological History: Positive for:: Dizziness Headaches Multiple Sclerosis (uses wheelchair, involuntary movements of extremities) Denies:: Alzheimer's Disease CVA Dementia Parkinson's Disease Seizures TIA Hx of GI Problems?: Yes Gastrointestinal History: Positive for:: Gastroesphageal Reflux Denies:: Cirrhosis Liver Disease Hx of Problems?: Yes Genitourinary History: Positive for:: Urinary Tract Infection Denies:: HX of Hemodialysis Kidney Stones HX of Peritoneal Dialysis: No Female Hx: Positive for:: Pelvic Inflammatory Denies:: Currently (hx hysterectomy R salpingoophX) Endometriosis Problems with Breasts? Skin History: Denies:: History Skin Disorders? Pressure Ulcers Hx Musculoskeletal Problems?: Yes Musculoskeletal History: Positive for:: Back Injury Fibromyalgia Joint Replacement (Back spine titanium) Musculoskeletal Trauma Hx of Psycho/Social Problems?: Yes Psycho Social History: Positive for:: Anxiety (lorazepam) Hx Depression Denies:: Bipolar Disorder Suicide Attempt Hx Surgeries?: Yes (back surgery x4, ACDF, Jennifer, hyster/RSO, choleX, T&A, knee surgery) Hx Any Other Health Problems?: Yes Other History: Positive for:: Hospitalization (bacteremia) Denies:: Cancer Endocrine Disease Thyroid Disease History Blood Transfusions: Positive for:: Accept Blood Products? Denies:: Blood Transfuse Reaction Blood Transfusions Hx Diabetes: No Hx Alcohol Use: NoHx Substance Use: Yes (MARIJUANA 2 OZ / MONTH SMOKES IT EVERY DAY ) Smoking Status: Former Smoker (quick smoking 12yrs ago, 10yrs smoking history) Have You Smoked inLast 12 mo: No Stop/Bang Treated for Sleep Apnea?: No S-Snoring: Do You Snore Loudly: No T-Tired: feel tired, fatigued: Yes O-Obsered: Observed not breath: No P-Blood Pressure: treated: No B- Body Mass Index > 35 kg/m2: No A- Age over 50: No N- Neck Large Circumference: No G- Gender Male: No CARMEN Total Score: 1 CARMEN Risk Assessment: Low Risk, <3 Yes Risk Assessment Category Category 1A: Patient has history of documented sleep apnea, and HAS NOT received any narcotic, sedative or anesthesia administration during this stay. Category 1B: Patient has history of documented sleep apnea, and HAS received any narcotic , sedative or anesthesia administration during this stay Category 2: Patient has SUSPECTED Obstructive Sleep Apnea, and HAS received any narcotic , sedative or anesthesia administration during this stay. Category 3: Patient has SUSPECTED Obstructive Sleep Apnea and HAS NOT received narcotic, sedative or anesthesia administration during this stay. Category 4: Outpatient in Procedural Areas with known sleep apnea or who screen positive for High Risk via the STOP/BANG questionnaire. Exam Exam Vital Signs Vital Signs Date Time Temp Pulse Resp B/P Pulse Ox O2 Delivery O2 Flow Rate FiO2 12/18/16 12:01 72 16 123/83 96 Room Air General Appearance: Alert, Oriented X3, Cooperative, No Acute Distress HEENT/AIRWAY: MP 2, Neck Movement (FROM), Mouth Opening (>3), Other (tmd3) Lungs: Normal Air Movement Heart: Exam Unremarkable, Regular Rate/Rhythm, Normal S1, Normal S2, No Murmurs /Rubs/Gallops Plan Impression Patient chart reviewed, patient interviewed and anesthestic plan with risks, benefits, and alternatives discussed, and informed consent obtained. NPO per Anesth. Guidelines: Yes ASA Physical Status: ASA3 Severe Disease Anesthetic Plan: TIVA Bene/Risks/Altern/Consents: Yes HP Complete Prior to Induction: Yes Agapito Kim MD Dec 18, 2016 12:46 /Rubs/Gallops Plan Impression Patient chart reviewed, patient interviewed and anesthestic plan with risks, benefits, and alternatives discussed, and informed consent obtained. NPO per Anesth. Guidelines: Yes ASA Physical Status: ASA3 Severe Disease Anesthetic Plan: TIVA Bene/Risks/Altern/Consents: Yes HP Complete Prior to Induction: Yes Agapito Kim MD Dec 18, 2016 12:46
[2016-12-18] MEDS ORDERED: fentaNYL-PF 50 mCg/mL 2 mL Inj IVPUSH PRN (13:35)
--- NOTE | 2016-12-18 13:50 | ENDO ---
[address] [address] ENDOSCOPY PROCEDURE PATIENT: SWATHI BLAIR : 1970 MR#: [id number] ADMIT: 12/18/2016 JOB ID: [id number] DATE: 12/18/2016 TYPE OF OPERATION: Esophagogastroduodenoscopy with Botox injection of the pylorus in four-quadrant fashion. PREOPERATIVE DIAGNOSIS(ES): Gastroparesis. POSTOPERATIVE DIAGNOSIS(ES): 1. Small amount of food seen in the stomach. 2. Successful Botox injection of 25 units in a four quadrant fashion in the pylorus. ANESTHESIA: Monitored anesthesia care. COMPLICATION: None. ESTIMATED BLOOD LOSS: Minimal. DESCRIPTION OF PROCEDURE: After risks and benefits were explained to the patient, informed consent was obtained. After anesthesia administered, upper endoscope was inserted into mouth intubating the esophagus, stomach, second portion of duodenum. Mucosa carefully examined. After procedure was done, the scope withdrawn and procedure terminated. FINDINGS: Upon inspection of the esophagus, the esophagus was normal without masses, ulcers or lesions. Z-line located 36 cm from incisors. Upon entering the stomach, there was mild retained food that was seen in the stomach. No masses, ulcers or lesions were seen. Retroflexion was normal. Duodenal bulb, first and second portion normal. Afterwards 25 units of Botox was injected in a four-quadrant fashion for a total 100 units at the pylorus which was done successfully. IMPRESSIONS: 1. Successful injection of Botox 25 units in four-quadrant fashion at the pylorus each. 2. Mild retained food that was seen in the stomach. RECOMMENDATIONS: 1. Repeat Botox injections. EGD with anesthesia in three months. 2. Followup in GI clinic as needed.
--- NOTE | 2016-12-18 15:11 | PCM.ANEP1 ---
Post Anesthesia PACU Phase 1 Assessment Date of Service: Dec 18, 2016 Vital Signs Vital Signs Date Time Temp Pulse Resp B/P Pulse Ox O2 Delivery O2 Flow Rate FiO2 12/18/16 14:30 74 16 111/85 96 Room Air 12/18/16 14:15 88 108/61 94 Room Air 12/18/16 13:53 98 119/77 93 Room Air 12/18/16 13:46 96 119/77 91 Room Air 12/18/16 13:30 84 116/81 94 Room Air 12/18/16 13:20 105 113/86 98 Room Air 12/18/16 13:09 96 136/95 93 Room Air 12/18/16 12:01 72 16 123/83 96 Room Air Anesthetic Administered: TIVA Level of Alertness: Awake, talking WELSH's with Equal Strength: Yes (baseline multiple sclerosis) Pain: No Nausea or Vomiting: No CV Function & Hydration Stable: Yes Airway Device: none Oxygen Delivery: Nasal Cannula Lungs: Normal Air Movement Summary 12/18/16 14:30 74 16 111/85 96 Room Air PACU Phase 2 Assessment Complications: No Follow up Care: N/A Patient Instructions Provided: N/A Agapito Kim MD Dec 18, 2016 15:11
== END 2016-12-18 23:59 | disposition home or self-care (01) ==
LOC: END 11:31
PROVIDERS: ATTEND Internal Medicine Gastroenterology
DX: K31.84 Gastroparesis (principal); G35 Multiple sclerosis; G89.4 Chronic pain syndrome; Z79.891 Long term (current) use of opiate analgesic; M54.12 Radiculopathy, cervical region; L28.1 Prurigo nodularis
CPT/HCPCS: 43236; J2250; J2704; J3010; J7120

== ENCOUNTER 2017-02-07 19:21 | Observation (INO) | payer OTHER ==
[~2017-02-07] VITALS: Ht 154.9 cm; Wt 50.3 kg
[~2017-02-07 19:21] MED LIST changes: -Botulinum Toxin Type-A 100 unit Inj IM ONE; -LISI10TA PO; -Lactated Ringer's 1,000 ML IV ONE; -METO-272 PO; -NAFC2FRO IV; -ONDA4TAB12 PO; -POTA10TA38 PO
[2017-02-07 19:47] VITALS: BP 138/100; PULSE 88; RESP 18; O2SAT 99
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
[2017-02-07] MEDS ORDERED: 0.9% Sodium Chloride 1,000 ML IV SCH (21:30)
[2017-02-07] MEDS ORDERED: Ondansetron 2 mg/mL 2 mL Inj IVPUSH ONE (21:30)
[2017-02-07 21:57] LABS: BASOPHILS % (AUTO) 0.1 % (0-3); EOSINOPHILS % (AUTO) 0.1 % (0-5); MONOCYTES % (AUTO) 8.7 % (4-12); Mean Corpuscular Hemoglobin 28.5 pg (27.0-35.0); Mean Corpuscular Volume 80.3 fL (81-100); Platelet Count 518 bil/L (150-400)
[2017-02-07] MEDS: HYDROmorphone 1 mg/mL Inj IVPUSH PRN ×3 (22:08→22:56)
[2017-02-07 22:39] LABS: Magnesium 2.2 mg/dL (1.6-2.6)
[2017-02-07 23:34] VITALS: BP 130/78; PULSE 87; RESP 18; O2SAT 95
[2017-02-08] MEDS: HYDROmorphone 1 mg/mL Inj IVPUSH PRN ×2 (00:10→00:31)
[2017-02-08 00:45] LABS: APPEARANCE,URINE CLEAR (CLEAR,HAZY); COLOR,URINE YELLOW (YELLOW); OCCULT BLOOD,URINE NEGATIVE (NEGATIVE); UROBILINOGEN,URINE NORMAL (NORMAL)
[2017-02-08] MEDS ORDERED: HYDROmorphone 1 mg/mL Inj IVPUSH PRN (00:45)
[2017-02-08] MEDS ORDERED: Ondansetron 2 mg/mL 2 mL Inj IVPUSH PRN ×2 (00:45→01:40)
[2017-02-08 01:28] VITALS: BP 123/79; PULSE 75; RESP 16; O2SAT 96
[2017-02-08] MEDS ORDERED: Alum-Mag Hydrox-Simeth 30 mL Suspension PO PRN (01:40)
[2017-02-08] MEDS ORDERED: Polyethylene Glycol (PEG) 17 Gm Powder PO PRN (01:40)
[2017-02-08] MEDS ORDERED: oxyCODONE-Acetamin 5-325 mg Tablet PO PRN (01:40)
[2017-02-08] MEDS ORDERED: Mupirocin 2% 22 Gm Ointment TOPICAL PRN (01:40)
--- NOTE | 2017-02-08 02:09 | PCM.HPMED ---
Subjective Date of Service Feb 08, 2017 Primary Provider: Admitting Physician: Kait Mccloud DO Primary Care Physician: Braulio Jackson DO Attending Physician: Kait Mccloud DO Chief Complaint: Nausea and Vomiting History of Present Illness: Patient is a 46 y/o Female with past medical history of MS, gastroparesis, chronic pain with opioid dependence, and GERD presenting after five days of nausea an vomiting. Patient states that she has had persistent nausea and vomiting with 6-10 episodes per day of bilious to dark emesis. Patient states she noticed scant blood during one episode of vomiting on day 2. She has had 3 loose stools starting today. Denies fevers/chills, urinary symptoms, shortness of breath, CP, BURNETT, or muscle cramps. Her gastroparesis is related to her MS and has been well controlled. She reports that she recently started two medications on 01/28 which include Pregabalin and one other medication she cannot recall. She states that she is leaving for [place] on Saturday, and is wondering if she is okay to go on this trip. She is asking for more Dilaudid because they gave her some in the ED. In the ED, patient was given 2mg of Dilaudid and 8mg of Zofran as well as 1L of NS. Review of Systems: ROS reviewed and otherwise negative unless noted above. Allergies Coded Allergies: demeclocycline (Verified Allergy, Unknown, 02/07/17) ibuprofen (Verified Allergy, Unknown, 02/07/17) morphine (Verified Allergy, Unknown, 02/07/17) risperidone (Verified Allergy, Unknown, 02/07/17) sulfamethoxazole (Verified Allergy, Unknown, 02/07/17) trimethoprim (Verified Allergy, Unknown, 02/07/17) cisapride (Verified Adverse Reaction, Severe, Vomiting, 02/08/17) gabapentin (Verified Adverse Reaction, Severe, Hallucination x3 days, 02/08) granisetron (Verified Adverse Reaction, Severe, UNABLE TO WALK, 02/08/17) CAN have ondansitron/zofran without problems codeine (Verified Adverse Reaction, Intermediate, GI upset, 06/07/16) tetracycline (Verified Adverse Reaction, Mild, pain, hyperemesis, 06/06/16) Home Medications Scheduled Albuterol HFA (Proair HFA) 8.5 Gm Hfa.aer.ad 2 PUFFS INHALATION Q4H Baclofen (Baclofen) 10 Mg Tablet 10 MG PO BID Beclomethasone Dipropionate (Qvar) 8.7 Gm Aer.w.adap 8.7 GM INHALATION BID Ergocalciferol (Vitamin D2) (Vitamin D2) 2,000 Unit Tablet 50,000 UNIT PO WEEKLY every saturday Fentanyl 25 mcg/hr Patch (Fentanyl 25 mcg/hr Patch) 1 Each Patch.td72 1 PATCH TOP Q72H Fluticasone Propionate (Fluticasone Propionate) 50 Mcg/Actuation [place].susp 1 SPRAY NS DAILY Each nostril Menthol/Zinc Oxide Oint (Calmoseptine Oint) 71 Gm Oint...g. 1 APPLIC TOPICAL 3- 4 X daily 44-20.6% Omeprazole (Omeprazole) 20 Mg Capsule.dr 20 MG PO BID Oxybutynin Chloride ER (Oxybutynin Chloride ER) 10 Mg Tab.er.24 10 MG PO DAILY Pregabalin (Lyrica) 150 Mg Capsule 150 MG PO BID Venlafaxine (Venlafaxine) 75 Mg Tablet 150 MG PO am Venlafaxine (Venlafaxine) 75 Mg Tablet 75 MG PO BIDWM Scheduled PRN Hydromorphone (Dilaudid) 2 Mg Tablet 4 MG PO Q4H PRN PRN Pain Mupirocin (Mupirocin Ointment) 22 Gm Oint...g. 1 APPLIC TOPICAL TID PRN PRN . For infected hair follicles Ondansetron ODT (Zofran ODT) 4 Mg Tablet 4 MG PO Q4H PRN PRN For Nausea Quetiapine Fumarate (Seroquel) 50 Mg Tablet 50 MG PO HS PRN PRN sleep Zolpidem (Zolpidem) 5 Mg Tablet 5 MG PO HS PRN PRN Insomnia oxyCODONE-Acetaminophen 10-325 mg (oxyCODONE-Acetaminophen 10-325 mg) 1 Each Tablet 1 TABLET PO Q6H PRN PRN For Pain oxyCODONE-Acetaminophen 5-325 mg (oxyCODONE-Acetaminophen 5-325 mg) 1 Each Tablet 1-2 TAB PO Q6H PRN PRN For Pain PMH MS Gastroparesis Asthma Denies: DM, HTN, CAD, CVA, Thyroid problems Surgical History Jennifer fundoplication C5-C7 surgery 2 months ago Lumbar surgery Knee surgery Tonsilectomy Adenoidectomy Hysterectomy Oopherectomy Choleycystectomy Family History CVA in Mother CAD in Mother DM in Father Social History Hx Alcohol Use: No Hx Substance Use: Yes (MARIJUANA 2 OZ / MONTH SMOKES IT EVERY DAY ) Hx Tobacco Use: Yes Smoking Status: Former Smoker Living Arrangement: with Family Exam Vital Signs Vital Sign - Last Date Time Temp Pulse Resp B/P Pulse Ox O2 Delivery O2 Flow Rate FiO2 02/08/17 01:28 36.9 75 16 123/79 96 Room Air Intake and Output 02/07/17 02/07/17 02/08/17 Cumulative From/Thru 15:00 23:00 07:00 02/07/17 19:47 - 02/08/17 00:32 Intake Total 2000 ml 2000 ml Balance 2000 ml 2000 ml Intake IV Total 2000 ml 2000 ml Exam Constitutional: Awake, alert and oriented x4, no acute distress Head: Normocephalic and atraumatic Eyes: Pupils equal round and reactive to light. EOMI, no scleral icterus. No pale conjunctiva Mouth: mucous membranes moist. no posterior oropharynx erythema Heart: regular rate and rhythm, no murmurs, rubs, or gallops. no peripheral edema Lungs: clear to auscultation, no wheeze, rales, or rhonchi ABD: soft, mild tenderness to epigastric and LLQ, no rebound or guarding. Bowel sounds hypoactive. Musculoskeletal: moves all four extremities appropriately, no swelling or tenderness. Neuro: CN II-XII intact. no focal deficits. Skin: warm, dry, good skin turgor Psych: appropriate mood and affect. Lab and Diagnostics Labs Item Value Date Time Red Blood Count 5.02 mil/mm3 02/07/172145 Mean Corpuscular Volume 80.3 fL L 02/07/172145 Mean Corpuscular Hemoglobin 28.5 pg 02/07/172145 Mean Corpuscular Hemoglobin Concent 35.5 % 02/07/172145 Red Cell Distribution Width 13.9 % 02/07/172145 Neutrophils (%) (Auto) 70.0 % 02/07/172145 Lymphocytes (%) (Auto) 21.0 % 02/07/172145 Monocytes (%) (Auto) 8.7 % 02/07/172145 Eosinophils (%) (Auto) 0.1 % 02/07/172145 Basophils (%) (Auto) 0.1 % 02/07/172145 Estimat Glomerular Filtration Rate 118 mL/min 02/07/172145 Calcium Level 10.2 mg/dL H 02/07/172145 Magnesium Level 2.2 mg/dL 02/07/172145 Total Bilirubin 0.6 mg/dL 02/07/172145 Aspartate Amino Transf (AST/SGOT) 20 U/L 02/07/172145 Alanine Aminotransferase (ALT/SGPT) 23 U/L 02/07/172145 Alkaline Phosphatase 127 U/L 02/07/172145 Total Protein 9.2 g/dL H 02/07/172145 Albumin 5.3 g/dL H 02/07/172145 Lipase 34 U/L 02/07/172145 Result Diagram: 02/07/17214502/07/172145 12-lead ECG Sinus rhythm HR 67 Assessment & Plan Patient is a 46 y/o Female with past medical history of MS, gastroparesis, chronic pain with opioid dependence, and GERD presenting after five days of nausea an vomiting. - Acute Intractable Nausea and Vomiting, POA, Active, Stable - Patient with five days of persistent nausea and vomiting w/ h/o gastroparesis and one episode of dark emesis - Patient not actively vomiting during visit. - Given 2mg Dilaudid in ED and Zofran, currently asking for more "Dilaudid" and "nausea medications" - Monitor - BP stable, no need for more IVF, patient received 1L in ED. Patient does not appear to be dehydrated - Zofran PRN - Continue home dose of pain regimen - Does not appear to be infectious source at this time, there is no WBC elevation, no need for Abx at this time - Consider GI consult if patients sxs continue or worsen. - History of Chronic Pain and Opioid Dependence, Chronic POA, Stable - Per pharmacy review, patient has had multiple dose adjustments to her opioid regimen, and could likely be going through withdrawal symptoms - Keep Dilaudid PRN for now, and determine proper dose adjustment based on her current regimen and control of possible withdrawals. -History of Gastroparesis, Chronic, Stable - Treat symptoms - Refer to her PCP for continued management, consider starting Reglan regimen; however patient is already on a number of antipsychotics and this would increase her risk of any EPS side effects. - History of Restless Leg Syndrome, POA, Chronic, Stable - Hold Lyrica, as patient has reported to just start taking this and has been off of this for two weeks. Patient is FULL CODE Due to the continued symptoms and reported h/o dark emesis, patient will be admitted under the observation status for close watch overnight for any more episodes of nausea and vomiting. Consider GI consult if patient continues to have sxs. Expected length of stay estimated to be less than 2 midnights. Pain Evaluation: Adequate Pain Control GI Prophylaxis: H2 roger VTE Prophylaxis Indicated: Meets Criteria for Anticoag Therapy VTE Prophylaxis: Sub-Q Heparin (Unfractionated) Resuscitation Status: CPR: Attempt Resuscitation Attending Statement The patient was seen and examined together with house staff on 02/07/2017 and I agree with the history, exam and plan as outlined in the note above. Giorgio Robertson DO Feb 08, 2017 02:09 Kait Mccloud DO Feb 08, 2017 03:06
--- NOTE | 2017-02-08 04:58 | NUR ---
Admission: Patient transferred to the [facility] around 0100, the pass off nurse Celena Brown gave report and escorted patient to the floor. Patient alert X4, able to make needs known to RN. c/o pain and tenderness in abdominal area, given pain medication and positioning for comfort. no N/V this shift. taking in fluids on own.
[2017-02-08 06:57] VITALS: BP 142/90; PULSE 90; RESP 16; O2SAT 95
--- NOTE | 2017-02-08 07:34 | NUR ---
wound/ pain Patient c/o pain in abdominal area.given pain medication per MD orders and positioning which did help pain to decrease to 3/10 and tolerable. dressing to lower abdominal area with minimal sago/sero drainage on dressing. patient states 'she is happy and healing well.'
[2017-02-08] MEDS: Fluticasone 100 mCg Inhaler INHALATION SCH ×2 (08:17→20:29)
[2017-02-08] MEDS: oxyCODONE-Acetamin 10-325 mg Tablet PO PRN ×3 (08:18→20:25)
[2017-02-08] MEDS: Tolterodine ER 4 mg ER24 Capsule PO SCH (08:18)
[2017-02-08] MEDS: Heparin 5,000 Unit/mL Inj SUBQ SCH ×2 (08:18→17:22)
[2017-02-08] MEDS: Famotidine Inj 20 MG in IV Premix 1 EACH IV SCH ×2 (08:21→20:25)
--- NOTE | 2017-02-08 08:31 | DRSVH ---
PROCEDURE: X-RAY ACUTE ABDOMINAL SERIES ([id number]) INDICATIONS: pain, vomiting TECHNIQUE: One view chest and two views of the abdomen were acquired. COMPARISON: [facility], CR, XR ABD ACUTE SERIES 3VW, 05/28/2016, 16:10. FINDINGS: Surgical changes and devices: Lower cervical spine fusion. Cholecystectomy. Chest: Lungs are clear. Heart size is normal. No pleural effusions. No pneumoperitoneum. Abdomen: Bowel gas pattern is nonspecific with a relative paucity of small bowel gas. No suspicious calcifications. Visualized solid organ contours appear normal. Bones: No suspicious bony lesions. IMPRESSION: Nonspecific bowel gas pattern. If clinical symptoms persist or clinical suspicion for pa thology is high, a followup examination or CT is suggested for further evaluation. Dictated by: Allison Garsia M.D. on 02/08/2017 at 8:27 Approved by: Allison Garsia M.D. on 02/08/2017 at 8:29
--- NOTE | 2017-02-08 11:00 | NUR ---
Rounds Provider notified that pt did not have n/v overnight or as of yet this am, however decreased appetite. Pain managed with currently ordered medications. Pt stable.
[2017-02-08 14:19] VITALS: BP 135/90; PULSE 74; RESP 12; O2SAT 98
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
--- NOTE | 2017-02-08 15:14 | PCM.PNMED ---
Subjective Date of Service Feb 08, 2017 Subjective Pt had improved nausea overnight. Still some abd pain Exam Vital Signs Vital Sign - Last Date Time Temp Pulse Resp B/P Pulse Ox O2 Delivery O2 Flow Rate FiO2 02/08/17 14:19 36.7 74 12 135/90 98 Room Air Intake and Output 02/07/17 02/07/17 02/08/17 Cumulative From/Thru 15:00 23:00 07:00 02/07/17 19:47 - 02/08/17 06:12 Intake Total 3200 ml 3200 ml Output Total 950 ml 950 ml Balance 2250 ml 2250 ml Intake Oral 1200 ml 1200 ml IV Total 2000 ml 2000 ml Output Urine Total 950 ml 950 ml Exam Constitutional: Awake, alert and oriented x4, no acute distress Head: Normocephalic and atraumatic Eyes: Pupils equal round and reactive to light. EOMI, no scleral icterus. No pale conjunctiva Mouth: mucous membranes moist. no posterior oropharynx erythema Heart: regular rate and rhythm, no murmurs, rubs, or gallops. no peripheral edema Lungs: clear to auscultation, no wheeze, rales, or rhonchi ABD: soft, mild tenderness to epigastric and LLQ, no rebound or guarding. Bowel sounds hypoactive. Musculoskeletal: moves all four extremities appropriately, no swelling or tenderness. Neuro: CN II-XII intact. no focal deficits. Skin: warm, dry, good skin turgor Psych: appropriate mood and affect. IVs and Medications Medications Reviewed: Medications were reviewed in detail Lab and Diagnostics Result Diagram: 02/07/17214502/07/172145 12-lead ECG Sinus rhythm HR 67 Assessment & Plan Patient is a 46 y/o Female with past medical history of MS, gastroparesis, chronic pain with opioid dependence, and GERD presenting after five days of nausea an vomiting. - Acute Intractable Nausea and Vomiting, POA, Active, Stable - Patient with five days of persistent nausea and vomiting w/ h/o gastroparesis and one episode of dark emesis - BP stable, no need for more IVF, patient received 1L in ED. Patient does not appear to be dehydrated - Zofran PRN - Continue home dose of pain regimen - Does not appear to be infectious source at this time, there is no WBC elevation, no need for Abx at this time - History of Chronic Pain and Opioid Dependence, Chronic POA, Stable - Per pharmacy review, patient has had multiple dose adjustments to her opioid regimen, and could likely be going through withdrawal symptoms - Keep Dilaudid PRN for now, and determine proper dose adjustment based on her current regimen and control of possible withdrawals. - Arrange for follow up with PCP for pain medication prescription to be filled before her vacation. -History of Gastroparesis, Chronic, Stable - Treat symptoms - Refer to her PCP for continued management, consider starting Reglan regimen; however patient is already on a number of antipsychotics and this would increase her risk of any EPS side effects. - History of Restless Leg Syndrome, POA, Chronic, Stable - Hold Lyrica, as patient has reported to just start taking this and has been off of this for two weeks. Patient is FULL CODE Status- Expected length of stay estimated to be less than 2 midnights. GI Prophylaxis: H2 roger VTE Prophylaxis: Sub-Q Heparin (Unfractionated) Resuscitation Status: CPR: Attempt Resuscitation Frank Rogel MD Feb 08, 2017 15:14 VTE Prophylaxis: Sub-Q Heparin (Unfractionated) Resuscitation Status: CPR: Attempt Resuscitation Frank Rogel MD Feb 08, 2017 15:14
--- NOTE | 2017-02-08 15:38 | NUR ---
POST HOSP[facility] FOLLOW UP: [facility]ched[facility]17 check in at 1445 for 1500 appointment with
[2017-02-08] MEDS: Albuterol 2.5 mg/3 mL Inhalation Solution NEB PRN (17:07)
[2017-02-08 17:08] VITALS: PULSE 77; RESP 20; O2SAT 96
--- NOTE | 2017-02-08 17:42 | NUR ---
Social Work Note: Initial Assessment Data& Assessment: EMR reviewed. RENAL TECHNICIAN met with pt at bedside to discuss discharge planning, RENAL TECHNICIAN role explained and Discharge Planning checklist packet provided. Mery Martinez is a 46 year old female admitted on 02/07/2017 for intractable vomiting and gastroparesis. Pt has Coordinated Care Blind/Disabled and sees Braulio Jackson DO at the [facility]idency [facility] for primary care. Pt lives in a 5th wheel with her and is independent with her ADL's, but does have [employer] for transportation and chore needs. Pt CM is martha Francos faxed. Pt uses a cane at baseline but also owns a wheelchair. Pt has had [facility] in the past but has never required a SNF stay. Pt does not have LTC insurance or VA benefit. Pt declined DPOA/AD paperwork at this time. MD does not identify any concerns with pt capacity for self care at this time. Pt to transport her home when medically ready. Pt required a follow up appointment at the residency clinic before she goes to [place] next SaturdayFebruary 13. Residency clinic appointment arranged for next SaturdayFebruary 12 at 2:45p. Pt was notified. No other MD orders identified at this time. Pt denies any needs at this time. RENAL TECHNICIAN to continue to follow. Plan: Anticipated discharge home via POV with resume [employer] caregiving when medically ready and a follow up appointment at the Residency clinic SaturdayFebruary 12 at 2:45p. RENAL TECHNICIAN to continue to follow if any other pt needs or MD orders arise. BONNIE Cardenas Addendum: 02/08/17 at 1748 by QASIM REILLY Amended: Links added.
[2017-02-08 21:06] VITALS: BP 124/79; PULSE 82; RESP 17; O2SAT 97
[2017-02-09] MEDS: Heparin 5,000 Unit/mL Inj SUBQ SCH ×2 (01:09→08:30)
[2017-02-09 01:11] VITALS: BP 119/76; PULSE 76; RESP 16; O2SAT 96
[2017-02-09] MEDS: oxyCODONE-Acetamin 10-325 mg Tablet PO PRN ×2 (04:25→11:41)
--- NOTE | 2017-02-09 05:04 | NUR ---
PAIN,ABO,Wound Pt. c/o 11/19 abd pain, prn percocet given,effective, continues IV Abo, wound dressing changed x1 per wound careinstruction, VSS, call light in reach at all times, will continues care. Addendum: 02/09/17 at 0515 by ADE VILLA RN ERROR. WRONG PATIENT.
--- NOTE | 2017-02-09 05:21 | NUR ---
PAIN,INSOMNIA Pain managed well with prn percocet this shift, requested prn ambien and seroquel for insomnia, effective, pt. reported "I slept pretty good", drinking enough fluids and has adequate output, VSS afebrile, call light in reach at all times.
[2017-02-09 06:36] VITALS: BP 136/91; PULSE 68; RESP 17; O2SAT 97
[2017-02-09 07:36] LABS: BASOPHILS % (AUTO) 0.9 % (0-3); MONOCYTES % (AUTO) 9.6 % (4-12); Mean Corpuscular Hemoglobin 28.5 pg (27.0-35.0); NEUTROPHILS % (AUTO) 50.9 % (40-74); Platelet Count 318 bil/L (150-400)
[2017-02-09] MEDS: Fluticasone 100 mCg Inhaler INHALATION SCH (08:25)
[2017-02-09] MEDS: Tolterodine ER 4 mg ER24 Capsule PO SCH (08:25)
[2017-02-09] MEDS: Famotidine Inj 20 MG in IV Premix 1 EACH IV SCH (08:30)
[2017-02-09 08:47] VITALS: PULSE 75; RESP 20; O2SAT 96
[2017-02-09] MEDS: Albuterol 2.5 mg/3 mL Inhalation Solution NEB PRN (08:47)
[2017-02-09] MEDS ORDERED: LORazepam 0.5 mg Tablet PO PRN (09:35)
--- NOTE | 2017-02-09 10:28 | PCM.DC.MED ---
Discharge Summary Date of Service Feb 09, 2017 Dates of Hospitalization Date of Hospital Admission Feb 07, 2017 at 23:26 Date of Discharge: Feb 09, 2017 Providers: Admitting Physician: Kait Mccloud DO Primary Care Physician: Braulio Jackson DO Attending Physician: Wendy Lopez MD Diagnosis at Time of Discharge Diagnosis at Time of Discharge Acute Intractable Nausea and Vomiting, POA, Active, Stable History of Chronic Pain and Opioid Dependence, Chronic POA, Stable History of Gastroparesis, Chronic, Stable History of Restless Leg Syndrome, POA, Chronic, Stable Procedures XRay, CTs & MRIs 02/07/17- X-RAY ACUTE ABDOMINAL SERIES IMPRESSION: Nonspecific bowel gas pattern. If clinical symptoms persist or clinical suspicion for pathology is high, a followup examination or CT is suggested for further evaluation. ECG 12 Lead Sinus rhythm HR 67 Brief History Per HPI by Dr. Robertson on 02/08/17 Patient is a 46 y/o Female with past medical history of MS, gastroparesis, chronic pain with opioid dependence, and GERD presenting after five days of nausea an vomiting. Patient states that she has had persistent nausea and vomiting with 6-10 episodes per day of bilious to dark emesis. Patient states she noticed scant blood during one episode of vomiting on day 2. She has had 3 loose stools starting today. Denies fevers/chills, urinary symptoms, shortness of breath, CP, BURNETT, or muscle cramps. Her gastroparesis is related to her MS and has been well controlled. She reports that she recently started two medications on 01/28 which include Pregabalin and one other medication she cannot recall. She states that she is leaving for [place] on Saturday, and is wondering if she is okay to go on this trip. She is asking for more Dilaudid because they gave her some in the ED. In the ED, patient was given 2mg of Dilaudid and 8mg of Zofran as well as 1L of NS. Hospital Course Patient is a 46 y/o Female with past medical history of MS, gastroparesis, chronic pain with opioid dependence, and GERD presenting after five days of nausea an vomiting. - Acute Intractable Nausea and Vomiting, POA, Active, Stable - Patient with five days of persistent nausea and vomiting w/ h/o gastroparesis and one episode of dark emesis - BP stable, no need for more IVF, patient received 1L in ED. Patient does not appear to be dehydrated - Zofran PRN - Continue home dose of pain regimen - Does not appear to be infectious source at this time, there is no WBC elevation, no need for Abx at this time - History of Chronic Pain and Opioid Dependence, Chronic POA, Stable - Per pharmacy review, patient has had multiple dose adjustments to her opioid regimen, and could likely be going through withdrawal symptoms - Keep Dilaudid PRN for now, and determine proper dose adjustment based on her current regimen and control of possible withdrawals. - Arrange for follow up with PCP for pain medication prescription to be filled before her vacation. -History of Gastroparesis, Chronic, Stable - Treat symptoms - Refer to her PCP for continued management, consider starting Reglan regimen; however patient is already on a number of antipsychotics and this would increase her risk of any EPS side effects. - History of Restless Leg Syndrome, POA, Chronic, Stable - Hold Lyrica, as patient has reported to just start taking this and has been off of this for two weeks. Patient is FULL CODE Exam Vital Signs (Last) Date Time Temp Pulse Resp B/P Pulse Ox O2 Delivery O2 Flow Rate FiO2 02/09/17 08:47 75 20 96 02/09/17 06:36 37.4 136/91 Room Air Test 02/07/17 21:46 02/07/17 23:50 02/09/17 07:26 Magnesium Level 2.2mg/dL (1.6-2.6) Lipase 34U/L (13-60) Hold Parisi Top Tube Received (Received) Urine Color Yellow (YELLOW) Urine Appearance Clear (CLEAR,HAZY) Urine pH 6.0 (5.0-8.0) Urine Specific Doyle 1.005 (1.003-1.035) Urine Protein Negativemg/dL (NEG,TRACE) Urine Glucose (UA) Negativemg/dL (NEGATIVE) Urine Ketones Tracemg/dL (NEGATIVE) Urine Occult Blood Negative (NEGATIVE) Urine Nitrite Negative (NEGATIVE) Urine Bilirubin Negative (NEGATIVE) Urine Urobilinogen Normalmg/dL (NORMAL) Urine Leukocyte Esterase Negative (NEGATIVE) Urine RBC 0-2/hpf (0-2) Urine WBC 0-5/hpf (0-5) Urine Epithelial Cells Few/hpf (NONE-MOD) Urine Crystals None seen (NONE SEEN) Urine Bacteria Few/hpf (NONE-FEW) Urine Hyaline Casts None/lpf (NONE) Urine Granular Casts None seen (NONE SEEN) Urine Waxy Casts None seen (NONE SEEN) Urine Red Blood Cell Casts None seen (NONE SEEN) Urine White Blood Cell Casts None seen (NONE SEEN) Urine Mucus None seen (None Seen) Urine Trichomonas None seen (NONE SEEN) Urine Yeast None (NONE SEEN) Urinalysis Comment None Urine Culture Reflexed Not indicated White Blood Count 5.4th/mm3 (3.8-10.1) Red Blood Count 3.62mil/mm3 (3.90-5.20) Hemoglobin 10.3g/dL (12.0-15.6) Hematocrit 30.4% (35.0-46.0) Mean Corpuscular Volume 84.0fL (81-100) Mean Corpuscular Hemoglobin 28.5pg (27.0-35.0) Mean Corpuscular Hemoglobin Concent 33.9% (32.0-37.0) Red Cell Distribution Width 13.8% (12.3-15.4) Platelet Count 318bil/L (150-400) Neutrophils (%) (Auto) 50.9% (40-74) Lymphocytes (%) (Auto) 36.2% (14-46) Monocytes (%) (Auto) 9.6% (4-12) Eosinophils (%) (Auto) 2.0% (0-5) Basophils (%) (Auto) 0.9% (0-3) Sodium Level 141mEq/L (134-144) Potassium Level 3.7mEq/L (3.5-5.2) Chloride Level 104mEq/L (97-108) Carbon Dioxide Level 22mmol/L (18-29) Blood Urea Nitrogen 5mg/dL (6-24) Creatinine 0.61mg/dL (0.57-1.00) Estimat Glomerular Filtration Rate 150mL/min (>59) Glucose Level 133mg/dL (60-99) Calcium Level 8.8mg/dL (8.5-10.1) Total Bilirubin 0.2mg/dL (0.0-1.2) Aspartate Amino Transf (AST/SGOT) 19U/L (0-50) Alanine Aminotransferase (ALT/SGPT) 19U/L (0-32) Alkaline Phosphatase 85U/L (25-150) Total Protein 6.0g/dL (6.4-8.4) Albumin 3.8g/dL (3.4-5.0) Discharge Medications Discharge Medications Albuterol HFA (Proair HFA) 8.5 Gm Hfa.aer.ad 2 PUFFS INHALATION Q4H Prescribed by: WILDER ALDRICH Baclofen (Baclofen) 10 Mg Tablet 10 MG PO BID (Reported) Beclomethasone Dipropionate (Qvar) 8.7 Gm Aer.w.adap 8.7 GM INHALATION BID ( Reported) Ergocalciferol (Vitamin D2) (Vitamin D2) 2,000 Unit Tablet 50,000 UNIT PO WEEKLY (Reported) every saturday Fentanyl 25 mcg/hr Patch (Fentanyl 25 mcg/hr Patch) 1 Each Patch.td72 1 PATCH TOP Q72H (Reported) Fluticasone Propionate (Fluticasone Propionate) 50 Mcg/Actuation Lena.susp 1 SPRAY NS DAILY (Reported) Each nostril Omeprazole (Omeprazole) 20 Mg Capsule.dr 20 MG PO BID (Reported) Oxybutynin Chloride ER (Oxybutynin Chloride ER) 10 Mg Tab.er.24 10 MG PO DAILY ( Reported) Pregabalin (Lyrica) 150 Mg Capsule 150 MG PO BID (Reported) Venlafaxine (Venlafaxine) 75 Mg Tablet 150 MG PO am (Reported) Venlafaxine (Venlafaxine) 75 Mg Tablet 75 MG PO BIDWM (Reported) As needed Hydromorphone (Dilaudid) 2 Mg Tablet 1 MG PO BID PRN PRN For Pain Prescribed by: WENDY LOPZE MD Lorazepam (Lorazepam) 0.5 Mg Tablet 0.5 MG PO BID PRN PRN For Anxiety Prescribed by: WENDY LOPEZ MD Mupirocin (Mupirocin Ointment) 22 Gm Oint...g. 1 APPLIC TOPICAL TID PRN PRN . ( Reported) For infected hair follicles Ondansetron ODT (Zofran ODT) 4 Mg Tablet 4 MG PO Q4H PRN PRN For Nausea Prescribed by: NORMAN FRENCH MD Quetiapine Fumarate (Seroquel) 50 Mg Tablet 50 MG PO HS PRN PRN sleep Prescribed by: SAMM ZULETA MD Zolpidem (Zolpidem) 5 Mg Tablet 5 MG PO HS PRN PRN Insomnia (Reported) oxyCODONE-Acetaminophen 10-325 mg (oxyCODONE-Acetaminophen 10-325 mg) 1 Each Tablet 1 TAB PO Q6H PRN PRN For Pain Prescribed by: WENDY LOPEZ MD Additional med instructions Will provide 5 days of pain and anxiety medications. Followup Plan Disposition: Home Follow-up plan Will provide 5 days of pain and anxiety medications. Keep appointment with your primary doctor Saturday for refills before your vacation. Time spent Greater than 30 minutes was spent in preparation of discharge with greater than 50% of that time dedicated to patient counseling and coordination of care. copies to: [facility] Wendy Lopez MD Feb 09, 2017 10:28
--- NOTE | 2017-02-09 10:30 | NUR ---
Trisha SUTTON notified that pt refused ASA. ok with heparin and pepcid hold this am. Aware that pt's appetite is poor with little food intake but good fluid intake w/o n/v. assessed R hand swelling, no concerns at this time, to f/u outpt for further concerns.
[2017-02-09] MEDS ORDERED: .Epic Conversion Completed XX PRN (10:55)
[2017-02-09] MEDS ORDERED: HYDR2TAB27 PO (11:04)
[2017-02-09] MEDS ORDERED: OXYC-466 PO (11:04)
[2017-02-09] MEDS ORDERED: LORA0.5T PO (11:05)
--- NOTE | 2017-02-09 11:12 | PCM.DIMED ---
Discharge Instructions Date of Service Feb 09, 2017 Dates of Hospitalization Feb 07, 2017 at 23:26 Discharge Diagnosis Discharge Diagnosis Acute Intractable Nausea and Vomiting, POA, Active, Stable History of Chronic Pain and Opioid Dependence, Chronic POA, Stable History of Gastroparesis, Chronic, Stable History of Restless Leg Syndrome, POA, Chronic, Stable Medication Instructions Additional med instructions Will provide 5 days of pain and anxiety medications. Would stop the medication started by your neurologist as may be cause of your nausea. Diet Discharge Diet: No restrictions Activity Discharge Activity: No restrictions Patient Instructions Follow-up plan Will provide 5 days of pain and anxiety medications. Keep appointment with your primary doctor Saturday for refills before your vacation. Follow-up Provider: [facility] Follow-up with PCP in: 1 week ([facility] appointment for this Saturday. ) Frank Rogel MD Feb 09, 2017 11:12
--- NOTE | 2017-02-09 13:14 | NUR ---
Discharge Prior to dc pt ambulating well in halls with FWW. Pleasant and appearing to feel very well. Pt dc'd in WC with UA at 1250. Picked up by Brody. Pt stable and w/o concerns at d/c. All dc instructions and paperwork reviewed and pt verbalized understanding. All belongings with pt on dc.
== END 2017-02-09 12:50 | disposition home or self-care (01) ==
LOC: SED 19:21 → MOC 23:26
PROVIDERS: ADMIT Internal Medicine; ATTEND Internal Medicine
DX: K31.84 Gastroparesis (principal); G35 Multiple sclerosis; K21.9 Gastro-esophageal reflux disease without esophagitis; F11.20 Opioid dependence, uncomplicated; G89.29 Other chronic pain; Z87.891 Personal history of nicotine dependence; F12.90 Cannabis use, unspecified, uncomplicated; G25.81 Restless legs syndrome
CPT/HCPCS: 36415; 74022; 80053; 81000; 81025; 83690; 83735; 85025; 93005; 94640; 94664; 96361; 96374; 96375; 96376; 99285; G0378; J1170; J1644; J2405; J3490; J7030